=== PATIENT | female | born 1980 | race Caucasian/White ===

== ENCOUNTER 2023-07-03 14:20 | Emergency (ER) | payer MEDICAID, SELFPAY ==
[2023-07-03 15:06] VITALS: BMI 39.4
--- NOTE | 2023-07-03 15:06 | XR_ITS ---
FINAL REPORT CLINICAL HISTORY: fall COMPARISON: None FINDINGS: LEFT FOOT: Three views of the left foot were obtained. There is no acute fracture or dislocation. Mild degenerative changes are present. Small calcaneal spurs are present as well. There is no soft tissue abnormality. IMPRESSION: No acute bony abnormality. Reviewed, Interpreted and Dictated by Donell Ornelas III, MD Transcribed by Kimberly Carbajal Authenticated and . [facility]
--- NOTE | 2023-07-03 15:06 | XR_ITS ---
FINAL REPORT CLINICAL HISTORY: fall COMPARISON: None FINDINGS: AP and lateral views of the left tibia and fibula were obtained. There is no prior exam for comparison. There is no acute fracture of the left tibia or fibula. The knee and ankle appear intact. The soft tissues are normal. IMPRESSION: No acute osseous abnormality of the left tibia or fibula. Reviewed, Interpreted and Dictated by Donell Ornelas III, MD Transcribed by Kimberly Carbajal Authenticated and [facility]
--- NOTE | 2023-07-03 15:06 | XR_ITS ---
FINAL REPORT CLINICAL HISTORY: fall COMPARISON: None FINDINGS: LEFT ANKLE: Three views of the left ankle were obtained. There is no acute fracture or dislocation. The joint spaces and mortise are intact. There is no soft tissue abnormality. Small calcaneal spurs are present. IMPRESSION: No acute bony abnormality. Reviewed, Interpreted and Dictated by Doenll Ornelas III, MD Transcribed by Kimberly Carbajal Authenticated and [facility]
--- NOTE | 2023-07-03 15:21 | EXP.UTC ---
Discharge Plan Disposition Patient Disposition: Home, Self-Care Condition: Good Prescriptions Prescriptions: New ibuprofen [ibuprofen] 600 mg tablet 600 mg PO Q6HP PRN (Reason: Mild Pain) Qty: 30 0RF Referrals Follow up/Referrals: Nell Montez APRN [Primary Care Provider] - See instructions Mell Enamorado DPM [Staff Physician] - See instructions Activity Restrictions/Add. Instructions Additional Instructions/Restrictions: Rest the extremity, apply ice for 15 minutes as tolerated three or four times per day, Elevate the extremity as tolerated while you are resting. Take ibuprofen for pain. I sent in a prescription to your pharmacy. Follow up with Dr. Enamorado (podiatry). I put in a referral but you need to call her office and schedule an appointment. Follow up with your regular doctor. GO TO THE ER FOR ANY WORSENING SYMPTOMS Clinical Impressions Clinical Impression: Sprain of left foot, Sprain of left ankle Instructions Patient Instructions: How to Use Crutches, DI for Ankle Sprain, DI for Foot Sprain Discharge ED Provider: Ronny Casiano [facility] General Stated complaint: ao 07/03/23 fell left foot pain Time Seen by Provider: 07/03/23 15:21 History of Present Illness Provider Complaint: She states that she twisted her left foot and ankle today. This caused her to fall. Since then she has had left foot and ankle pain and swelling. She denies any other injury. Related Data Previous Rx's Medication Instructions Recorded ibuprofen 600 mg tablet 600 mg PO Q6HP PRN Mild Pain #30 07/03/23 tabs Allergies Allergy/AdvReac Type Severity Reaction Status Date / Time No Known Allergies Allergy Unverified 05/16/17 14:19 [facility] Disclaimer: The information contained in this section may have been updated after the patient was seen, as this information can be updated by other users. Social History Smoking Status: Never smoker alcohol intake: never current occupational status: employed Travel in the last 8 weeks: None ROS Obtained: Yes All systems reviewed & no additional complaints except as documented Constitutional Constitutional: Denies chills and Denies fever(s) Eyes Eyes: Denies eye discharge ENT Ears, Nose, Mouth, and Throat: Denies dizziness, Denies otalgia and Denies sore throat Cardiovascular Cardiovascular: Denies chest pain Respiratory Respiratory: Denies shortness of breath, Denies chest congestion, Denies cough, Denies stridor and Denies wheezing Gastrointestinal Gastrointestingal: Denies nausea or vomiting Musculoskeletal Musculoskeletal: Reports as per HPI Integumentary/Breasts Skin/Breast: Denies rash Neurologic Neurologic: Denies dizziness and Denies paresthesias Allergic/Immunologic Allergic/Immunologic: Denies wheezing Physical Exam General General appearance: alert and in no apparent distress Head Head exam: atraumatic, normocephalic and normal inspection Eye Eye exam: Present normal appearance, PERRL and EOMI ENT ENT exam: Present normal exam, normal oropharynx, mucous membranes moist, TM's normal bilaterally and normal external ear exam Neck Neck exam: Present normal inspection, full ROM and trachea midline; Absent meningismus or lymphadenopathy Chest Chest inspection: Present normal inspection and symmetric chest wall rise; Absent tenderness Respiratory Respiratory exam: Present normal lung sounds bilaterally; Absent respiratory distress Cardiovascular Cardiovascular exam: Present regular rate and normal rhythm; Absent JVD Abdominal Exam Abdominal exam: Present soft and normal bowel sounds; Absent distention, tenderness or guarding Extremities Exam Extremities exam: Present normal capillary refill; Absent calf tenderness Expanded Lower Extremity Exam Left: Knee exam: Present normal inspection, full ROM and knee extension intact; Absent tenderness Lower leg exam: Present normal inspection, full ROM and Achilles tendon intact; Absent tenderness or Homans' sign Ankle exam: Present full ROM, tenderness and swelling; Absent abrasion, laceration, ecchymosis, deformity, crepitus, dislocation, erythema, tenderness over talofibular lig or anterior draw sign Foot/toe exam: Present full ROM, tenderness and swelling; Absent abrasion, laceration, ecchymosis, deformity, crepitus, dislocation, erythema, amputation, puncture wound, foreign body, calcaneal tenderness, tenderness at base of 5th metatarsal, nail avulsion or subungual hematoma Neurovascular/Tendon exam: Present normal capillary refill; Absent pulse deficit, motor deficit, sensory deficit, tendon deficit or extremity cold to touch Gait: observed and limited by pain Back Exam Back exam: Present normal inspection; Absent tenderness Neurological Exam Neurological exam: Present alert and oriented X3 Psychiatric Psychiatric exam: Present normal affect and normal mood Skin Skin exam: Present warm, dry, intact and normal color Lymphatic Lymphatic Findings: no adenopathy Medical Decision Making Medical Records Medical records reviewed: No I reviewed the patient's medical records. Harish Inquiry Pt receiving controlled substance: No Orders (Tests/Meds): ORDERS Category Date Time Status Foot XR left minimum 3 views [XR foot LT min 3V] Stat Exams 07/03/23 15:06 Ordered XR ankle LT min 3V Stat Exams 07/03/23 15:06 Ordered XR tibia fibula LT 2V Stat Exams 07/03/23 15:06 Ordered Radiology Data #1: Image(s): Ankle Image Reviewed: Yes I reviewed the patient's radiology image and Yes I have reviewed radiologist's interpretation Preliminary Findings: No Fracture Seen FINAL REPORT CLINICAL HISTORY: fall COMPARISON: None FINDINGS: LEFT ANKLE: Three views of the left ankle were obtained. There is no acute fracture or dislocation. The joint spaces and mortise are intact. There is no soft tissue abnormality. Small calcaneal spurs are present. IMPRESSION: No acute bony abnormality. Reviewed, Interpreted and Dictated by Donell Ornelas III, MD Transcribed by Kimberly Carbajal Authenticated and [facility]: Image(s): Foot/Toes Image Reviewed: Yes I reviewed the patient's radiology image and Yes I have reviewed radiologist's interpretation Preliminary Findings: No Fracture Seen FINAL REPORT CLINICAL HISTORY: fall COMPARISON: None FINDINGS: AP and lateral views of the left tibia and fibula were obtained. There is no prior exam for comparison. There is no acute fracture of the left tibia or fibula. The knee and ankle appear intact. The soft tissues are normal. IMPRESSION: No acute osseous abnormality of the left tibia or fibula. Reviewed, Interpreted and Dictated by Donell Ornelas III, MD Transcribed by Kimberly Carbajal Authenticated and [facility] Procedures Risk/Benefits of Procedure(s) Were Explained: Yes Orthopedic Splinting/Casting Injury #1: Side: left Lower Extremity Injury Location: ankle and foot Lower Extremity Immobilizer: AirCast Other Orthopedic Equipment: crutches Post Cast/Splinting Neuro Status: intact and no change Post Cast/Splinting Vasc Status: intact and no change
[2023-07-03 15:36] VITALS: BP 127/84; PULSE 85; RESP 20; TEMP 37.2; O2SAT 96; BMI 35.4
[2023-07-03] MEDS: IBUPROFEN 800 MG TABLET PO (17:24)
[2023-07-03 17:29] VITALS: BP 127/84; PULSE 85; RESP 20; TEMP 37.2; O2SAT 96
== END 2023-07-03 17:29 | disposition home or self-care (01) ==
PROVIDERS: Emergency Provider Nurse Practitioner Family; PCP Nurse Practitioner Family
DX: S93.402A Sprain of unspecified ligament of left ankle, initial encounter (principal); S93.602A Unspecified sprain of left foot, initial encounter; W19.XXXA Unspecified fall, initial encounter
CPT/HCPCS: 73590; 73610; 73630; 99204; 99212; G0463

== ENCOUNTER 2024-08-27 15:37 | Outpatient (CLI) | payer MEDICAID, SELFPAY ==
[2024-08-27 16:49] LABS: Basophils % 0.3 % (0.1-2.0); Eosinophils % 0.5 % (0.1-12.0); Hemoglobin 12.6 g/dL (12.2-16.2); Lymphocytes % 27.1 % (10-50); Mean Corpuscular HGB Conc 32.3 g/dL (31.8-35.4); Mean Corpuscular Hemoglobin 27.3 pg (27.0-31.2); Mean Corpuscular Volume 84.4 fl (81-99); Mean Platelet Volume 9.8 fl (7.4-10.4); Monocytes # 0.3 K/mm3 (0.1-1.0); Monocytes % 4.5 % (1.7-9.3); Neutrophils # 4.9 K/mm3 (1.8-7.8); Neutrophils % 66.9 % (37.0-80.0); Platelet Count 197 K/mm3 (142-424); Red Blood Count 4.62 M/mm3 (4.20-5.40); Red Cell Distribution Width 15.2 % (11.5-17.5); White Blood Count 7.4 K/mm3 (4.8-10.8)
[2024-08-27 17:33] LABS: Erythrocyte Sedimentation Rate 21 mm/hr (0-20)
[2024-08-27 18:00] LABS: Free T4 (Free Thyroxine) 0.78 ng/dl (0.78-2.19)
[2024-08-27 18:11] LABS: Alanine Aminotransferase 26 U/L (12-78); Albumin Level 4.4 g/dl (3.5-5.0); Alkaline Phosphatase 124 U/L (38-126); Anion Gap 12.1 mEq/L (5-15); Aspartate Amino Transferase 55 U/L (14-36); Bilirubin,Direct 0.3 mg/dl (0.0-0.4); Bilirubin,Indirect 0.5 mg/dL (0.0-0.9); Bilirubin,Total 0.8 mg/dl (0.2-1.3); Bilirubin,Unconjugated 0.5 mg/dL (0.0-1.1); Blood Urea Nitrogen 8 mg/dl (7-17); Calcium 7.5 mg/dl (8.4-10.2); Carbon Dioxide 35 mmol/L (22.0-30.0); Chloride 96 mmol/L (98-107); Chol/HDL Ratio 4.2 (1-3.5); Cholesterol 202 mg/dl (140-200); Creatine Kinase 232 U/L (30-135); Estimated Glomerular Filt Rate 78 ml/min (>60); GFR (African American) 94 ML/MIN (>60); Glucose 142 mg/dl (74-100); HDL Cholesterol 48 mg/dl (40-60); Magnesium 1.7 mg/dl (1.6-2.3); Potassium 4.1 mmoL/L (3.5-5.1); Sodium 139 mmol/L (136-145); Total Protein,Serum 7.5 g/dl (6.3-8.2); Triglycerides 199 mg/dl (30-150); VLDL Cholesterol 40 mg/dL (0-40)
[2024-08-27 18:23] LABS: C-Reactive Protein 31.6 mg/L (0-4); Direct LDL Cholesterol 120.83 mg/dL (100-129)
[2024-08-27 18:24] LABS: NT Pro Brain Natriuretic Pep. 38.2 pg/mL (0-125)
[2024-08-27 19:56] LABS: Hemoglobin A1C 9.1 % (4.0-6.0)
== END 2024-08-27 23:59 | disposition home or self-care (01) ==
PROVIDERS: PCP Nurse Practitioner Family; Visit Provider Internal Medicine
DX: R94.31 Abnormal electrocardiogram [ECG] [EKG] (principal); R20.0 Anesthesia of skin; R20.2 Paresthesia of skin; R00.2 Palpitations; M79.605 Pain in left leg; M79.604 Pain in right leg; E11.9 Type 2 diabetes mellitus without complications; R60.9 Edema, unspecified
CPT/HCPCS: 36415; 80048; 80061; 80076; 82550; 83036; 83735; 83880; 84439; 84443; 85025; 85651; 86140; 93270

== ENCOUNTER 2024-09-13 10:51 | Outpatient (CLI) | payer MEDICAID, SELFPAY ==
--- NOTE | 2024-09-13 | CA_ITS ---
APPROVED REPORT EXAM: Comprehensive 2D, Doppler, and color-flow Echocardiogram Lean Manager: Savannah Huitron CRT Ht: 5 ft 3 in Wt: 213lbs BSA: 1.99 BP: 120/78 mmHg Indications: Abnormal ECG, Chest Pain, Diabetes, Fatigue, Peripheral Edema, Hyperlipidemia, Hypertension/HDD 2D Dimensions LA Volume 26.30 mL LA Volume Index 13.22 mL/m2 (M/F) 16-34 M-Mode Dimensions RVDd 2.84 cm (0.9-2.6) LA Diam 3.14 cm (1.9-4.0) LVDd 4.08 cm (3.5-5.7) LVDs 2.52 cm (3.5-5.7) IVSd 1.02 cm (0.6-1.1) PWd 0.70 cm (0.6-1.1) EF (Teich) 68.90% FS 38.20% EDV (Teich) 73.40 mL TAPSE 2.34 (<1.7) ESV (Teich) 22.80 mL LV Diastology E Decel Time 207 (160-240 msec) E/A Ratio 1.29 MED A' 5.00 cm/s LAT A' 7.80 cm/s Aortic Valve AO Peak GR. 7.10 mmHg Mitral Valve MV A Velocity 75.0 (40-130 cm/s) E/A Ratio 1.29 Pulmonary Valve PV Peak Velocity 91.0 (50-150 cm/s) Tricuspid Valve TR P. Velocity 174.00 cm/s RAP Estimate 10.00 mmHg RVSP 22.00 mmHg Left Ventricle The left ventricle is normal size. The left ventricular systolic function is normal. The left ventricular ejection fraction is within the normal range. There is normal left ventricular wall thickness. There is normal LV segmental wall motion. The left ventricular diastolic function is normal. LVEF is 55%. Right Ventricle The right ventricle is normal size. The right ventricular systolic function is normal. Atria The left atrium size is normal. The right atrium size is normal. There is no Doppler evidence of interatrial shunt. Aortic Valve Aortic valve opens well. There is no aortic valvular stenosis. Trace aortic regurgitation. Mitral Valve The mitral valve is normal in structure. No evidence of mitral valve stenosis. Trace mitral regurgitation. Tricuspid Valve Tricuspid valve is grossly normal in structure and function. Mild tricuspid regurgitation. RVSP is normal. Pulmonic Valve The pulmonary valve is normal in structure. Trace pulmonic regurgitation. Great Vessels The aortic root is normal in size. IVC is normal in size and collapses >50% with inspiration. Pericardium There is no pericardial effusion. Other Information Study Quality: Fair Conclusion Normal biventricular systolic function. Mild TR. Electronically signed by : Isabel Cuevas MD 09/15/2024 22:46:37
--- NOTE | 2024-09-13 | US_ITS ---
FINAL REPORT CLINICAL HISTORY: .Claudication, HTN, DM, HLD FINDINGS: BILATERAL ANKLE BRACHIAL INDICES Pressure indices are as follows are: RIGHT LOWER EXTREMITY Ankle brachial pressure index: 1.8 Toe brachial pressure index: 0.8 COMMENTS: Normal LEFT LOWER EXTREMITY Ankle brachial pressure index: 1.2 Toe brachial pressure index: 0.8 COMMENTS: Normal IMPRESSION: No evidence of significant obstructive peripheral vascular disease of the lower extremities. Reviewed, Interpreted and Dictated by Josiah Hartmann MD Transcribed by Luz López Authenticated and [facility]
[2024-09-13 11:59] VITALS: BMI 37.7
[2024-09-13] MEDS: METOPROLOL TARTRATE 50MG TABLET PO (12:00)
[2024-09-13] MEDS: METOPROLOL TARTRATE 25MG TABLET 25 MG (12:00)
[2024-09-13] MEDS: IVABRADINE HCL 7.5MG TABLET PO (12:00)
[2024-09-13 12:09] VITALS: BP 140/80; PULSE 72; RESP 16; O2SAT 98
[2024-09-13 12:56] VITALS: BP 120/54; PULSE 65; RESP 16; O2SAT 96
[2024-09-13] MEDS: NITROGLYCERIN 0.4MG SL TABLET SL (12:56)
[2024-09-13 12:59] VITALS: BP 126/76; PULSE 60; RESP 18; O2SAT 100
--- NOTE | 2024-09-13 13:00 | CT_ITS ---
APPROVED REPORT Composite Bond Worker: CLINICAL INDICATION Chest Pain TECHNIQUE Image Acquisition: A 128 slice MDCT scanner ([employer] View) was used for data acquisition. A noncontrast coronary calcium scan was performed. A CT attenuation threshold of 130 Hounsfield units (HU) was used for the detection of calcium in contiguous voxels of 1 sq mm in area to be counted as individual lesions. Bolus tracking in the ascending aorta with a threshold of 180 HU was performed. Immediately afterwards, ECG synchronized cardiac CT was then performed from the cardiac base to apex using retrospective gating with ECG tube current modulation. A total of 85 mL of Isovue 370 mg/mL contrast medium was administered at 5 mL/sec followed by a saline flush using a biphasic injection protocol. A tube voltage of 120 KVp was used. The patient received the following medications prior to the cardiac CT. 75 mg of oral metoprolol 15 mg of oral ivabradine 0.4 mg of sublingual nitroglycerin The average heart rate at the time of acquisition was 54 bpm and regular. Image Reconstruction Transaxial images were reconstructed at 0.67 mm slide thickness. Data was reviewed interactively on an advanced workstation capable of 2 and 3-dimensional displays in all conventional reconstruction formats, including multiplanar reformations, maximum intensity projections, curved multiplanar reformations, and volume rendered reconstructions. When applicable, selected routine images describing the relevant coronary anatomy and pathology were saved and sent to PACS. Complications None Technical Quality Overall image quality was good. Coronary artery opacification was adequate. Total DLP (Dose-Length Product) is 2019.5 mGy-cm. The reported value represents the total of one or more individual components during the CT acquisition of this date and at this time, and as such, the same value may appear in more than one CT report depending on the interpreting/reporting physicians. COMPARISON None FINDINGS CT Coronary Calcium Scoring LMA (Left Main Artery) = 0 LAD (Left Anterior Descending) = 0 LCX (Left Coronary Circumflex) = 0 RCA (Right Coronary Artery) = 0 Total Calcium Score = 0 using the AJ-130 method. The interpretation of the calcium heart score is based on the following continuum*: 0 = no calcified plaque detected (risk of coronary artery disease is very low ??? less than 5%) 1-10 = calcium detected in extremely minimal levels (risk of coronary diseases is still low ??? less than 10%) 11-100 = mild levels of plaque detected with certainty (mild or minimal narrowing of heart arteries is likely) 101-400 = definite,at least moderate levels of plaque detected (relatively high risk of a heart attack within 3-5 years) >401-999 = extensive levels of plaque detected (high risk of heart attack, high levels of vascular disease are present, high likelihood of at least one significant coronary narrowing) *The calcium heart score quantifies the burden of coronary calcification/plaque in the coronary arteries. The calcium heart score is not able to evaluate the presence or burden of non-calcified (i.e. soft) plaque. There is no identifiable calcification in the aortic valve, mitral annulus or mitral valve, pericardium, or myocardium. Coronary CT Angiography The coronary arterial system is right dominant. Quantitative Stenosis Grading: Left Main (LM): The left main originates normally from the left sinus of Valsalva. The LM bifurcates into the left anterior descending artery and left circumflex artery. The LM is patent with no evidence of atherosclerosis. Left Anterior Descending (LAD) and Diagonal Branches: The LAD gives off 2 diagonal branch(es). The LAD and its branches are patent with no evidence of atherosclerosis. There is no evidence of LAD-myocardial bridge. Left Circumflex (LCX) and Obtuse Marginals (OM): The LCX gives off 1 Obtuse Marginal (OM) branch(es). The LCX and its branches are patent with no evidence of atherosclerosis. Right Coronary Artery (RCA): The RCA originates normally from the right sinus of Valsalva. The RCA gives off a posterior descending artery (PDA) and posterolateral (PL) branches. The RCA and its branches are patent with no evidence of atherosclerosis. Non-Coronary Cardiac Findings: Analysis of the left ventricular (LV) structure and function was performed after 3-D reconstruction of the LV from axial images, with user-corrected automatic contouring for assessment of LV volumes and user-defined reconstruction from oblique planes for measurement of 3-D cardiac structure and function. -The left ventricle systolic function is normal. -There is no left atrial appendage filling defect. Two right pulmonary veins and two left pulmonary veins drain normally into the left atrium. -No pericardial thickening or calcification. -Central and branch pulmonary arteries in the [id number] are unremarkable. -Thoracic aorta within the visualized thoracic aortic-branches in the [id number] is unremarkable. Extracardiac Structures No significant extra-cardiac findings. Note, however, that this study is focused on the cardiac findings. IMPRESSION -Absence of coronary calcification with an Agatston score = 0 using the AJ-130 method. -No evidence of significant flow-limiting atherosclerosis of the coronary arteries. -No evidence of coronary anomalies or myocardial bridges. -CAD-RADS 0. Management recommendations per ACC/AHA guidelines*, as clinically appropriate. *Recommendations: CAD RADS 0: Reassurance. Consider non-atherosclerotic causes of chest pain. CAD RADS 1: Consider non-atherosclerotic causes of chest pain. Consider preventive therapy and risk factor modification. CAD RADS 2: Consider non-atherosclerotic causes of chest pain. Consider preventive therapy and risk factor modification, particularly for patients with nonobstructive plaque in multiple segments. CAD RADS 3: Consider further functional testing. Consider symptom-guided anti-ischemic and preventive pharmacotherapy as well as risk factor modification per published guideline statements. CAD RADS 4A: Consider further functional testing or invasive coronary angiography with revascularization per published guideline statements. Consider symptom-guided anti-ischemic and preventive pharmacotherapy as well as risk factor modification per published guideline statements. CAD RADS 4B: Invasive coronary angiography recommended with revascularization per published guideline statements. Consider symptom-guided anti-ischemic and preventive pharmacotherapy as well as risk factor modification per published guideline statements. CAD RADS 5: Consider invasive angiography and/or viability assessment with revascularization per published guideline statements. Consider symptom-guided anti-ischemic and preventive pharmacotherapy as well as risk factor modification per published guideline statements. CRITICAL RESULT None COMMUNICATION Per this written report The coronary and cardiac findings of this CCTA were reviewed, reported, and signed by Dov Cuevas MD (Enrobing Machine Operator) Conclusion Electronically signed by : Isabel Cuevas MD 09/13/2024 21:13:32
[2024-09-13 13:02] VITALS: BP 115/63; PULSE 60; RESP 16; O2SAT 99
[2024-09-13 13:13] VITALS: BP 116/68; PULSE 67; RESP 16; O2SAT 99
[2024-09-13] MEDS: 0.9 % SODIUM CHLORIDE 50 ML VIAL IV (13:14)
[2024-09-13] MEDS: SODIUM CHLORIDE 0.9% 10ML SYR (RAD ONLY) 10 ML IV (13:14)
[2024-09-13] MEDS: IOPAMIDOL-370 (76%);100ML BOTTLE 85 ML IV (13:14)
== END 2024-09-13 13:16 | disposition home or self-care (01) ==
LOC: RT 10:52 → RAD 11:57
PROVIDERS: PCP Nurse Practitioner Family; Visit Provider Internal Medicine
DX: R07.89 Other chest pain (principal); R20.0 Anesthesia of skin; R20.2 Paresthesia of skin; R00.2 Palpitations; E11.9 Type 2 diabetes mellitus without complications
CPT/HCPCS: 75574; 93306; 93923; Q9967

== ENCOUNTER 2025-03-18 23:55 | Observation (INO) | payer MEDICAID, SELFPAY ==
--- OUTSIDE RECORDS SUMMARY | 2024-02-28 13:00 | XMS_ITS ---
Author Organization Doc Larson [facility] Address [address] [facility] [address] [place] [address] Care Team Providers Care Arborist Representative Name Role Phone MENG BREWER Primary Care Provider [phone] ZACH MENDOZA [phone] Encounters Encounter Location Date Provider Diagnosis Doc L[facility] [address] [facility] [address] [place] [address] 02/28/2024 ZACH MENDOZA Plan Of Treatment No Information Progress Notes * Radha SALMERONDOB:[birth year] (44 yo F)Acc No.[id number]:02/28/2024 Patient: Radha HAMEED Appointment Provider: Du MENDOZA APRN :1980 A ge:43 Y S ex:Female Date:02/28/2024 Address:[address] [place] [address], [address] Pcp:MENG BREWER Check In:02:08 PM ESTCheck O ut:02:56 PM EST Subjective: * Chief Complaints: * * Medical History: Objective: * Vitals: Assessment: Plan: * Treatment: * Billing Information: * Visit Code: * Procedure Codes: * Electronic signature of DEJA MENDOZA APRN on 03/19/2025 at 12:02 AM EDT Sign off status: Pending * Appointment Provider: Du MENDOZA APRN Date: Generated for Printi ng/Faxing/eTransmitting on: 12:02 AM EDT
--- OUTSIDE RECORDS SUMMARY | 2024-06-17 09:45 | XMS_ITS ---
Author Organization Doc KNallely Larson [facility] Address [address] [facility] [address] [place] [address] Care Team Providers Care Lumber Sorter Name Role Phone MENG BREWER Primary Care Provider [phone] ZACH BELTRÁN [phone] REASON FOR VISIT 30 day f/u meds SEJAL fasting Encounters Encounter Location Date Provider Diagnosis Doc Laura Larson [facility] [address] [facility] [address] [place] [address] 06/17/2024 ZACH MENDOZA Plan Of Treatment No Information Progress Notes * Radha SALMERONDOB:[birth year] (44 yo F)Acc No.[id number]:06/17/2024 Progress Notes Patient: Radha HAMEED Appointment Provider: Du MENDOZA APRN :1980 A ge:43 Y S ex:Female Date:06/17/2024 Address:[address] [place] [address], [address] Pcp:MENG BREWER Subjective: * Chief Complaints: * 1 . 30 day f/u meds SEJAL fasting. * Medical History: Objective: * Vitals: Assessment: Plan: * Treatment: * Billing Information: * Visit Code: * Procedure Codes: * Electronic signature of DEJA MENDOZA APRN on 03/19/2025 at 12:02 AM EDT Sign off status: Pending * Appointment Provider: Du MENDOZA APRN Date: 0 06/17/2024 Generated for Printi ng/Faxing/eTransmitting on: 1 12:02 AM EDT
[2025-03-18 23:51] VITALS: BP 146/100; PULSE 91; RESP 14; TEMP 37.3; O2SAT 95; BMI 37.2
--- NOTE | 2025-03-18 23:53 | XR_ITS ---
PROCEDURE INFORMATION: Exam: XR Left Ankle Exam date and time: 03/19/2025 12:29 AM Age: 44 years old Clinical indication: Pain; Ankle; Left; Additional info: Fall, ankle pain TECHNIQUE: Imaging protocol: Radiologic exam of the left ankle. Views: 3 or more views. COMPARISON: CR XR ANKLE LT MIN 3V 07/03/2023 3:10 PM FINDINGS: Bones/joints: No acute osseous abnormality. No evidence of acute fracture or dislocation. Small plantar calcaneal spur. Soft tissues: No significant soft tissue abnormalities. IMPRESSION: No evidence of acute fracture or dislocation.
--- NOTE | 2025-03-18 23:53 | XR_ITS ---
PROCEDURE INFORMATION: Exam: XR Left Foot Exam date and time: 03/19/2025 12:29 AM Age: 44 years old Clinical indication: Pain; Foot; Left; Additional info: Fall, foot/ankle pain TECHNIQUE: Imaging protocol: Radiologic exam of the left foot. Views: 3 or more views. COMPARISON: CR XR FOOT LT MIN 3V 07/03/2023 3:09 PM FINDINGS: Bones/joints: No acute osseous abnormality. No evidence of acute fracture or dislocation. Small plantar calcaneal spur. Soft tissues: No significant soft tissue abnormalities. IMPRESSION: No evidence of acute fracture or dislocation.
--- NOTE | 2025-03-18 23:53 | XR_ITS ---
PROCEDURE INFORMATION: Exam: XR Left Shoulder Exam date and time: 03/19/2025 12:29 AM Age: 44 years old Clinical indication: Pain; Shoulder; Left; Additional info: Fall ankle pain TECHNIQUE: Imaging protocol: Radiologic exam of the left shoulder. Views: 2 or more views. COMPARISON: No relevant prior studies available. FINDINGS: Bones/joints: No acute osseous abnormality. No acute fracture. No dislocation. Soft tissues: No significant soft tissue abnormalities. IMPRESSION: No evidence of acute fracture or dislocation.
--- NOTE | 2025-03-18 23:54 | CT_ITS ---
PROCEDURE INFORMATION: Exam: CTA Chest With Contrast Exam date and time: 03/19/2025 1:03 AM Age: 44 years old Clinical indication: Injury or trauma; Injury details: Patient fell down stairs; Additional info: Trauma, critical injury suspected TECHNIQUE: Imaging protocol: Computed tomographic angiography of the chest with contrast. Exam focused on the arteries. 3D rendering (Not supervised by radiologist): MIP and/or 3D reconstructed images were created by the technologist. Radiation optimization: All CT scans at this facility use at least one of these dose optimization techniques: automated exposure control; mA and/or kV adjustment per patient size (includes targeted exams where dose is matched to clinical indication); or iterative reconstruction. Contrast material: ISOVUE; Contrast volume: 80 ml; Contrast route: INTRAVENOUS (IV); COMPARISON: CT ANGIO NECK 03/19/2025 1:00 AM FINDINGS: Pulmonary arteries: No vascular intraluminal filling defects to suggest pulmonary embolism. Aorta: No acute abnormality. No aortic aneurysm, pseudoaneurysm or dissection. Lungs: No acute abnormality. No consolidation. Anterior left upper lobe calcified granuloma and a few tiny bilateral noncalcified subpleural nodules or granulomas. Pleural spaces: No pleural effusion. No pneumothorax. Heart: Heart and mediastinal structures appear intact. Heart size is normal. Lymph nodes: No enlarged lymph nodes. Bones/joints: No acute osseous abnormality. No acute fracture. Soft tissues: No significant soft tissue abnormalities. Other findings: Abdomen and pelvis findings reported separately. IMPRESSION: No evidence of acute traumatic injury.
--- NOTE | 2025-03-18 23:54 | CT_ITS ---
PROCEDURE INFORMATION: Exam: CT Lumbar Spine Without Contrast Exam date and time: 03/19/2025 12:56 AM Age: 44 years old Clinical indication: Injury or trauma; Additional info: Trauma, critical injury suspected TECHNIQUE: Imaging protocol: Computed tomography of the lumbar spine without contrast. Radiation optimization: All CT scans at this facility use at least one of these dose optimization techniques: automated exposure control; mA and/or kV adjustment per patient size (includes targeted exams where dose is matched to clinical indication); or iterative reconstruction. COMPARISON: CT THORACIC SPINE WO CON 03/19/2025 12:53 AM FINDINGS: Bones/joints: No acute fracture or subluxation. Grossly normal alignment and vertebral body height. Multilevel findings: No acute findings. No significant spinal stenosis. Soft tissues: No significant soft tissue abnormalities. IMPRESSION: No evidence of acute fracture or subluxation.
--- NOTE | 2025-03-18 23:54 | CT_ITS ---
PROCEDURE INFORMATION: Exam: CTA Head With Contrast, Arteriography Exam date and time: 03/19/2025 1:00 AM Age: 44 years old Clinical indication: Injury or trauma; Additional info: Trauma, critical injury suspected TECHNIQUE: Imaging protocol: Computed tomographic angiography of the head with contrast. Exam focused on the arteries. Radiation optimization: All CT scans at this facility use at least one of these dose optimization techniques: automated exposure control; mA and/or kV adjustment per patient size (includes targeted exams where dose is matched to clinical indication); or iterative reconstruction. COMPARISON: CT HEAD/BRAIN WO CON 03/19/2025 12:48 AM FINDINGS: ANTERIOR CIRCULATION: INTRACRANIAL INTERNAL CAROTID ARTERIES: Intracranial internal carotid arteries are without acute flow limiting stenosis. MIDDLE CEREBRAL ARTERIES: M1 and visualized M2 segments of the MCA are without acute flow limiting stenosis. ANTERIOR CEREBRAL ARTERIES: A1 and visualized A2 segments of the BOB are without acute flow limiting stenosis. Anterior communicating artery is unremarkable. . POSTERIOR CIRCULATION: VERTEBRAL ARTERIES: Intracranial vertebral arteries and their visualized branches are without acute flow limiting stenosis. BASILAR ARTERY: Diffusely attenuated basilar artery with origin of the posterior cerebral arteries. POSTERIOR CEREBRAL ARTERIES: P1 and P2 segments of the [employer] are without acute flow limiting stenosis. IMPRESSION: NO acute flow-limiting stenosis or large vessel occlusion. COMMENTS: Recommend followup with MRI if persistent/new/worsening symptoms or symptoms unexplained by the current study. PROCEDURE INFORMATION: Exam: CTA Neck With Contrast Exam date and time: 03/19/2025 1:00 AM Age: 44 years old Clinical indication: Injury or trauma; Additional info: Trauma, critical injury suspected TECHNIQUE: Imaging protocol: Computed tomographic angiography of the neck with contrast. Exam focused on the cervical segments of the vasculature. 3D rendering (Not supervised by radiologist): MIP and/or 3D reconstructed images were created by the technologist. Radiation optimization: All CT scans at this facility use at least one of these dose optimization techniques: automated exposure control; mA and/or kV adjustment per patient size (includes targeted exams where dose is matched to clinical indication); or iterative reconstruction. Contrast material: ISOVUE; Contrast volume: 80 ml; Contrast route: INTRAVENOUS (IV); COMPARISON: No relevant prior studies available. FINDINGS: THORACIC VESSELS: Visualized aortic arch is unremarkable. No significant narrowing at the origin of the neck vessels. . COMMON CAROTID ARTERIES: Common carotid arteries are without acute flow limiting stenosis. . CERVICAL INTERNAL CAROTID ARTERIES: No acute flow-limiting stenosis of the cervical internal carotid arteries. No evidence of an aneurysm or a dissection. . VERTEBRAL ARTERIES: Cervical vertebral arteries are without acute flow limiting stenosis. . OTHER STRUCTURES: Chronic degenerative changes in the visualized spine. Extensive confluence ground-glass opacities with intervening air trapping in the visualized upper lung jameson. IMPRESSION: 1. NO acute flow-limiting stenosis, no occlusion, aneurysm or dissection of the carotid and vertebral arteries in the neck. 2. Extensive confluence ground-glass opacities with intervening air trapping in the visualized upper lung jameson. Differential diagnosis includes interstitial pneumonia, hypersensitivity pneumonitis, atypical pneumonia (PCP, CMV), pulmonary edema, pulmonary hemorrhage. REFERENCES: NASCET CRITERIA. The degree of stenosis in the cervical segment of the internal carotid artery is based on NASCET criteria. Normal is no stenosis. Mild is less than 50% stenosis. Moderate is 50-69% stenosis. Severe is 70% to 99% stenosis. Total occlusion is no detectable patent lumen.
--- NOTE | 2025-03-18 23:54 | CT_ITS ---
PROCEDURE INFORMATION: Exam: CT Cervical Spine Without Contrast Exam date and time: 03/19/2025 12:50 AM Age: 44 years old Clinical indication: Injury or trauma; Additional info: Fall down 10 steps, neck pain TECHNIQUE: Imaging protocol: Computed tomography of the cervical spine without contrast. Radiation optimization: All CT scans at this facility use at least one of these dose optimization techniques: automated exposure control; mA and/or kV adjustment per patient size (includes targeted exams where dose is matched to clinical indication); or iterative reconstruction. COMPARISON: No relevant prior studies available. FINDINGS: Bones: Loss of normal curvature of the spine, alignment of the vertebral bodies is grossly normal. No evidence of acute compression fracture or deformity in the cervical spine. No acute displaced fracture involving the vertebral bodies or their posterior elements. Discs/Spinal canal/Neural foramina: Mild chronic degenerative changes in the cervical spine. Lungs: NA Soft tissues: Pre-and paravertebral soft tissues are grossly normal. IMPRESSION: Mild chronic degenerative changes in the cervical spine without an acute bony cervical spine injury or abnormality. COMMENTS: Recommend followup with MRI if clinically suspicion for discoligamentous/soft tissue or cord abnormality. PROCEDURE INFORMATION: Exam: CT Head Without Contrast Exam date and time: 03/19/2025 12:48 AM Age: 44 years old Clinical indication: Injury or trauma; Additional info: Trauma, critical injury suspected TECHNIQUE: Imaging protocol: Computed tomography of the head without contrast. Radiation optimization: All CT scans at this facility use at least one of these dose optimization techniques: automated exposure control; mA and/or kV adjustment per patient size (includes targeted exams where dose is matched to clinical indication); or iterative reconstruction. COMPARISON: No relevant prior studies available. 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 Normal appearing brain parenchyma without intraparenchymal hemorrhage and normal sanchez-white matter differentiation/no obvious acute ischemic stroke. No intra-or extra-axial fluid collection, no supra-or infratentorial mass, no mass effect or midline shift. Cerebral ventricles: Ventricles, sulci and basal cisterns are normal in size without hydrocephalus. Paranasal sinuses: No significant mucoperiosteal thickening in the visualized paranasal sinuses. Mastoid air cells: No mastoid effusion. Bones: Visualized skull bones are grossly normal. Soft tissues: NA IMPRESSION: 1. 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 Recommend MRI for further evaluation. 2. No evidence of an acute intracranial hemorrhage, mass lesion or obvious acute ischemic infarction.
--- NOTE | 2025-03-18 23:54 | CT_ITS ---
PROCEDURE INFORMATION: Exam: CTA Abdomen and Pelvis With Contrast Exam date and time: 03/19/2025 1:03 AM Age: 44 years old Clinical indication: Injury or trauma; Additional info: Trauma, critical injury suspected TECHNIQUE: Imaging protocol: Computed tomographic angiography of the abdomen and pelvis with contrast. Exam focused on the arteries. 3D rendering (Not supervised by radiologist): MIP and/or 3D reconstructed images were created by the technologist. Radiation optimization: All CT scans at this facility use at least one of these dose optimization techniques: automated exposure control; mA and/or kV adjustment per patient size (includes targeted exams where dose is matched to clinical indication); or iterative reconstruction. Contrast material: ISOVUE; Contrast volume: 80 ml; Contrast route: INTRAVENOUS (IV); COMPARISON: CT LUMBAR SPINE WO CON 03/19/2025 12:56 AM FINDINGS: Lungs: Lung bases and chest findings reported separately. Aorta: No acute abnormality. No aortic aneurysm, pseudoaneurysm or dissection. Celiac and mesenteric arteries: No occlusion or significant stenosis. Renal arteries: No occlusion or significant stenosis. Right iliac arteries: No occlusion or significant stenosis. Left iliac arteries: No occlusion or significant stenosis. Liver: No acute abnormality. Liver appears intact. Diffuse fatty infiltration of the liver. Gallbladder and biliary ducts: Previous cholecystectomy. Pancreas: No acute abnormality. No mass. No ductal dilation. Spleen: No acute abnormality. Spleen appears intact. Adrenal glands: No significant or acute abnormality. Kidneys and ureters: Kidneys appear intact and enhance normally. No hydronephrosis or hydroureter. Stomach and bowel: Ingested contents within stomach. No significant or disproportionate large or small bowel distention. Moderate amount of stool within the colon. Colonic diverticulosis without CT evidence of diverticulitis. Appendix: No findings to suggest acute appendicitis. Intraperitoneal space: No significant fluid collection. No free air. Lymph nodes: No enlarged lymph nodes. Urinary bladder: Intact urinary bladder. Reproductive: Previous hysterectomy. Bones/joints: No acute fracture. Soft tissues: No significant soft tissue abnormalities. Large body habitus. IMPRESSION: 1. No evidence of traumatic visceral injury. 2. Diffuse fatty infiltration of the liver. 3. Colonic diverticulosis without CT evidence of diverticulitis. 4. Previous cholecystectomy and hysterectomy.
--- NOTE | 2025-03-18 23:54 | CT_ITS ---
PROCEDURE INFORMATION: Exam: CT Thoracic Spine Without Contrast Exam date and time: 03/19/2025 12:53 AM Age: 44 years old Clinical indication: Injury or trauma; Additional info: Fall down 10 steps, midline back pain TECHNIQUE: Imaging protocol: Computed tomography of the thoracic spine without contrast. Radiation optimization: All CT scans at this facility use at least one of these dose optimization techniques: automated exposure control; mA and/or kV adjustment per patient size (includes targeted exams where dose is matched to clinical indication); or iterative reconstruction. COMPARISON: CT CERVICAL SPINE WO CON 03/19/2025 12:50 AM FINDINGS: Bones/joints: No evidence of acute fracture or subluxation. Mild thoracic spondylosis and degenerative bony changes. Discs/Spinal canal/Neural foramina: No acute findings. No significant spinal stenosis. Soft tissues: No significant soft tissue abnormalities. IMPRESSION: No evidence of acute fracture or subluxation.
--- NOTE | 2025-03-18 23:55 | HMH.EDGENADL ---
Discharge Plan Disposition Patient Disposition: Admitted Prescriptions Prescriptions: No Action furosemide 40 mg tablet 40 mg PO DAILY Patient Comments: TAKE 1 TABLET BY MOUTH EVERY DAY levothyroxine 300 mcg tablet 300 mcg PO DAILY Patient Comments: TAKE 1 TABLET BY MOUTH DAILY IN THE MORNING ON AN EMPTY STOMACH glipizide 10 mg tablet extended release 24hr 10 mg PO DAILY Patient Comments: TAKE 1 TABLET BY MOUTH EVERY DAY aspirin 81 mg tablet,delayed release (DR/EC) 81 mg PO DAILY Patient Comments: TAKE 1 TABLET BY MOUTH EVERY DAY gabapentin 800 mg tablet 800 mg PO QID Patient Comments: TAKE 1 TABLET BY MOUTH FOUR TIMES DAILY lansoprazole 30 mg capsule,delayed release(DR/EC) 30 mg PO DAILY Patient Comments: TAKE 1 CAPSULE BY MOUTH EVERY DAY metoprolol tartrate 50 mg tablet 50 mg PO DAILY Patient Comments: TAKE 1 TABLET BY MOUTH TWICE DAILY potassium chloride 10 mEq tablet,ER particles/crystals 10 meq PO DAILY Patient Comments: TAKE 1 TABLET BY MOUTH TWICE DAILY WITH FOOD (DME) Dexcom G7 Sensor Device See Rx Instructions .ROUTE .MEDSUPPLY Qty: 1 Patient Comments: USE DIRECTED TO CHECK BLOOD SUGAR Rx Instructions: As directed Mounjaro 2.5 mg/0.5 mL pen injector 2.5 mg SQ WEEKLY Patient Comments: ADMINISTER 2.5 MG UNDER THE SKIN EVERY WEEK atorvastatin 20 mg tablet 10 mg PO DAILY Patient Comments: TAKE 1 TABLET BY MOUTH DAILY ibuprofen [ibuprofen] 600 mg tablet 600 mg PO Q6HP PRN (Reason: Mild Pain) Qty: 30 0RF Referrals Follow up/Referrals: Provider,Referral, MD [Primary Care Provider, Medical] - See instructions Clinical Impressions Clinical Impression: Fall, Neck pain, Acute pain of left shoulder Concussion Qualifiers: Encounter type: initial encounter Loss of consciousness presence/duration: with LOC of 30 min or less Qualified Code(s): S06.0X1A - Concussion with loss of consciousness of 30 minutes or less, initial encounter Print Language Print Language: Taiwanese Discharge ED Provider: Bart Yap General Adult HPI General Chief complaint: Fall Stated complaint: Fall Time Seen by Provider: 03/18/25 23:55 History of Present Illness HPI narrative: 39 female with history of heart failure, hypothyroidism, hypertension, diabetes presents for trauma. She reports that she missed stepped and fell down approximately 10 stairs. She hit her head at the bottom and is complaining of headache, neck pain, midline back pain, left shoulder and left foot/ankle pain. She is on low-dose aspirin but no other blood thinners. She was given 100 fentanyl by EMS prior to arrival. Related Data Home Medications ?Medication ?Instructions ?Recorded ?Confirmed aspirin 81 mg tablet,delayed 81 mg PO DAILY 08/27/24 09/13/24 release atorvastatin 20 mg tablet 10 mg PO DAILY 08/27/24 09/13/24 blood-glucose sensor (DexROVOP G7 #1 ea 08/27/24 09/13/24 Sensor device) furosemide 40 mg tablet 40 mg PO DAILY 08/27/24 09/13/24 gabapentin 800 mg tablet 800 mg PO QID 08/27/24 09/13/24 glipizide 10 mg tablet, extended 10 mg PO DAILY 08/27/24 09/13/24 release 24 hr lansoprazole 30 mg capsule,delayed 30 mg PO DAILY 08/27/24 09/13/24 release levothyroxine 300 mcg tablet 300 mcg PO DAILY 08/27/24 09/13/24 metoprolol tartrate 50 mg tablet 50 mg PO DAILY 08/27/24 09/13/24 potassium chloride 10 mEq 10 meq PO DAILY 08/27/24 09/13/24 tablet,extended release(part/cryst) tirzepatide 2.5 mg/0.5 mL 2.5 mg SQ WEEKLY 08/27/24 09/13/24 subcutaneous pen injector (Akilah) Previous Rx's ?Medication ?Instructions ?Recorded ibuprofen 600 mg tablet 600 mg PO Q6HP PRN Mild Pain #30 07/03/23 tabs Allergies Allergy/AdvReac Type Severity Reaction Status Date / Time No Known Allergies Allergy Verified 09/13/24 12:06 [facility] Disclaimer: The information contained in this section may have been updated after the patient was seen, as this information can be updated by other users. Medical History Numbness and tingling of both upper extremities Numbness and tingling of both legs Pain in both upper extremities Pain in both lower extremities Palpitations Edema Dizziness GERD (gastroesophageal reflux disease) Diverticulitis Diabetes Congestive heart failure Hyperthyroidism Surgical History History of thyroidectomy History of hysterectomy History of cholecystectomy Social History Smoking Status: Never smoker alcohol intake: never current occupational status: employed Travel in the last 8 weeks?: None Other Medical History Have you received the Flu Vaccine for this season: No Have you received the Pneumonia Vaccine: No ROS Obtained: Yes All systems reviewed & no additional complaints except as documented Physical Exam General General appearance: alert Head Head exam: normocephalic and other (Small forehead hematoma without laceration) Eye Eye exam: Present normal appearance, PERRL and EOMI ENT ENT exam: Present normal oropharynx and normal external ear exam Neck Neck exam: Present normal inspection and tenderness (Midline cervical tenderness) Chest Chest inspection: Present normal inspection and symmetric chest wall rise; Absent tenderness Respiratory Respiratory exam: Present normal lung sounds bilaterally; Absent respiratory distress Cardiovascular Cardiovascular exam: Present regular rate and normal rhythm Abdominal Exam Abdominal exam: Present soft; Absent distention, tenderness or guarding Extremities Exam Extremities exam: Present normal inspection and other (Tenderness to the left shoulder, left ankle. No laceration); Absent edema or joint swelling Back Exam Back exam: Present normal inspection and tenderness (Midline thoracic spinal tenderness) Neurological Exam Neurological exam: Present alert and oriented X3; Absent motor sensory deficit Psychiatric Psychiatric exam: Present normal affect and normal mood Skin Skin exam: Present warm, dry and normal color Lymphatic Lymphatic Findings: no adenopathy Medical Decision Making Medical Records Medical records reviewed: Yes I reviewed the patient's medical records. Screening: Per USPSTF and CDC recommendations, given the prevalence of disease in our region, it is our hospital?s policy to screen for HIV and viral Hepatitis for all patients aged 18 and over and those with ongoing risk factors. Harish Inquiry Pt receiving controlled substance: No Harish was queried for this patient: No Vital Signs: 03/18/25 23:51 03/18/25 23:57 03/19/25 00:00 Temperature 99.1 F Temperature Source Oral Pulse Rate 86 Pulse Rate [Left Radial] 91 H Respiratory Rate 14 13 Blood Pressure 154/87 H Blood Pressure [Left Brachial] 146/100 H Blood Pressure Mean 110 Blood Pressure Mean [Left Brachial] 115 Blood Pressure Source [Left Brachial] Automatic Cuff Blood Pressure Position [Left Brachial] Supine 02 Sat by Pulse Oximetry 95 96 Oxygen Delivery Method Room Air 03/19/25 00:00 03/19/25 00:15 03/19/25 00:21 Temperature Temperature Source Pulse Rate 90 82 Pulse Rate [Left Radial] Respiratory Rate 16 10 L Blood Pressure Blood Pressure [Left Brachial] Blood Pressure Mean Blood Pressure Mean [Left Brachial] Blood Pressure Source [Left Brachial] Blood Pressure Position [Left Brachial] 02 Sat by Pulse Oximetry 93 L 96 94 L Oxygen Delivery Method Room Air 03/19/25 01:10 03/19/25 01:15 03/19/25 01:30 Temperature Temperature Source Pulse Rate 82 86 87 Pulse Rate [Left Radial] Respiratory Rate 10 L 11 L 9 L Blood Pressure Blood Pressure [Left Brachial] Blood Pressure Mean Blood Pressure Mean [Left Brachial] Blood Pressure Source [Left Brachial] Blood Pressure Position [Left Brachial] 02 Sat by Pulse Oximetry 93 L 95 95 Oxygen Delivery Method 03/19/25 01:30 03/19/25 01:45 03/19/25 02:00 Temperature Temperature Source Pulse Rate 80 77 Pulse Rate [Left Radial] Respiratory Rate 9 L 10 L Blood Pressure 127/78 Blood Pressure [Left Brachial] Blood Pressure Mean 94 Blood Pressure Mean [Left Brachial] Blood Pressure Source [Left Brachial] Blood Pressure Position [Left Brachial] 02 Sat by Pulse Oximetry 95 95 Oxygen Delivery Method 03/19/25 02:01 03/19/25 02:01 03/19/25 02:15 Temperature Temperature Source Pulse Rate 78 77 Pulse Rate [Left Radial] Respiratory Rate 11 L 12 Blood Pressure 116/85 Blood Pressure [Left Brachial] Blood Pressure Mean 98 Blood Pressure Mean [Left Brachial] Blood Pressure Source [Left Brachial] Blood Pressure Position [Left Brachial] 02 Sat by Pulse Oximetry 95 96 Oxygen Delivery Method 03/19/25 02:30 03/19/25 02:30 Temperature Temperature Source Pulse Rate 75 Pulse Rate [Left Radial] Respiratory Rate 11 L Blood Pressure 117/86 Blood Pressure [Left Brachial] Blood Pressure Mean 93 Blood Pressure Mean [Left Brachial] Blood Pressure Source [Left Brachial] Blood Pressure Position [Left Brachial] 02 Sat by Pulse Oximetry 93 L Oxygen Delivery Method Lab Data Lab results reviewed: Yes I reviewed the patient's lab results. Lab Results 03/18/25 23:50: WBC 6.8, RBC 4.55, Hgb 12.8, Hct 38.1, MCV 83.7, MCH 28.1, MCHC 33.6, RDW 13.9, Plt Count 192, MPV 10.0, Neut % (Auto) 56.3, Lymph % (Auto) 35.8, Whitfield % (Auto) 5.9, Eos % (Auto) 1.3, Baso % (Auto) 0.4, Neut # (Auto) 3.8, Lymph # (Auto) 2.4, Whitfield # (Auto) 0.4, Eos # (Auto) 0.1, Baso # (Auto) 0.0, Sodium 137, Potassium 3.6, Chloride 97 L, Carbon Dioxide 31 H, Anion Gap 12.6, BUN 12, Creatinine 0.80, Estimated Creat Clear 134, Estimated GFR 78, Est GFR ( Amer) 94, Glucose 203 H, Calcium 8.5, Total Bilirubin 0.6, AST 42 H, ALT 24, Alkaline Phosphatase 173 H, Total Protein 7.4, Albumin 4.3, Globulin 3.1, Albumin/Globulin Ratio 1.4, HCV Ab JEN w/Rflx PCR Qn Reactive, HIV Ag/Ab Combo Qual Negative 03/18/25 23:50 03/18/25 23:50 Orders (Tests/Meds): ED MEDICATIONS Discontinued Medications Generic Name Dose Route Start Last Admin Trade Name Freq PRN Reason Stop Dose Admin Acetaminophen 1,000 mg 03/19/25 01:39 03/19/25 01:42 Acetaminophen 500mg Tab PO 03/19/25 01:40 1,000 mg ONCE ONE Administration Iopamidol 160 ml 03/19/25 01:04 03/19/25 01:12 Iopamidol-370 (76%);100ml Bottle IV 03/19/25 01:05 160 ml ONCE ONE Administration Ketorolac Tromethamine 30 mg 03/19/25 01:39 03/19/25 01:42 Ketorolac 30mg/Ml Vial IV 03/19/25 01:40 30 mg ONCE ONE Administration Sodium Chloride 100 ml 03/19/25 01:04 03/19/25 01:12 0.9 % Sodium Chloride 50 Ml Vial IV 03/19/25 01:05 100 ml ONCE ONE Administration Sodium Chloride 10 ml 03/19/25 01:04 03/19/25 01:12 Sodium Chloride 0.9% 10ml Syr (Rad Only) IV 03/19/25 01:05 10 ml ONCE ONE Administration ORDERS Category Date Time Status CT angio abd/pel - TRAUMA Stat Cat Scan 03/18/25 23:[address] angio chest - dissection Stat Cat Scan 03/18/25 23:[address] angio head Stat Cat Scan 03/18/25 23:[address] angio neck Stat Cat Scan 03/18/25 23:[address] cervical spine wo con Stat Cat Scan 03/18/25 23:[address] head/brain wo con Stat Cat Scan 03/18/25 23:[address] lumbar spine wo con Stat Cat Scan 03/18/25 23:[address] thoracic spine wo con Stat Cat Scan 03/18/25 23:54 Completed Ankle XR - Left minimum 3 Views [XR ankle LT min 3V] Exams 03/18/25 23:53 Completed Stat Foot XR left minimum 3 views [XR foot LT min 3V] Stat Exams 03/18/25 23:53 Completed Shoulder XR left minimum 2 views [XR shoulder LT min 2V Exams 03/18/25 23:53 Completed ] Stat CBC w/Auto Diff [Complete Blood Count Auto Diff] Stat Lab 03/18/25 23:50 Completed CMP [Comprehensive Metabolic Panel] Stat Lab 03/18/25 23:50 Completed HCV RNA PCR, Quant Stat Lab 03/18/25 23:50 Received HIV Combo Stat Lab 03/19/25 00:05 Completed Hepatitis C Ab Qual. W/ RFX Stat Lab 03/19/25 00:05 Completed Medical Decision Narrative: 44-year-old female with history of diabetes hypothyroidism hypertension and heart failure presents for fall down approximately 10 steps with headache neck pain back pain and extremity pain. Reports loss of consciousness. History was obtained via interactive discussion with patient, EMS, chart review. On arrival, patient is [afebrile, hemodynamically stable, satting appropriately, alert, oriented x4, GCS 15], moving all extremities spontaneously. Full physical exam performed and significant for small frontal hematoma on the forehead, midline cervical and thoracic back pain, tenderness to the left ankle and left shoulder. Normal strength and sensation in bilateral upper and lower extremities. Differential includes but is not limited to intracranial trauma and thoracic trauma intra-abdominal trauma spine trauma extremity trauma. Patient was given fentanyl by EMS for symptomatic management and correction of underlying abnormalities. Workup initiated including trauma scans, basic labs, radiographs of the affected extremities. On re-evaluation, patient reports continued headache, pain behind her eyes, neck pain and left shoulder pain. Family in the room reports that she is confused compared to baseline and not quite acting herself. Laboratory workup independently interpreted by me and significant for no significant leukocytosis, stable renal function, no significant electrolyte derangement. Imaging independently interpreted by me and significant for possible Chiari malformation in the brain, no obvious traumatic injury. CT C-spine shows no evidence of cervical injury. No rib fractures or intra-abdominal trauma. No evidence of fractures on radiographs.. See radiology read for full review of final results. On reassessment patient is continuing to have significant headache and neck pain and we were unable to clear her c-collar. Family reports that she is still not quite acting herself. Given this, I think patient would benefit from admission for observation for concussion as well as for Noncon MRI to assess for possible ligamentous/spinal cord injury not seen on CT scan. I discussed all the radiographic findings with the family including the possible Chiari malformation for which she will need a follow-up MRI at some point. I had a interactive discussion with the hospitalist on-call for admission. Procedures Risk/Benefits of Procedure(s) Were Explained: Yes Critical Care Critical Care Time Critical Care Time: No
[2025-03-18 23:57] VITALS: PULSE 86; RESP 13; O2SAT 96
[2025-03-18 23:59] LABS: Hematocrit 38.1 % (37.0-47.0); Hemoglobin 12.8 g/dL (12.2-16.2); Immature Granulocytes % 0.3 %; Mean Corpuscular HGB Conc 33.6 g/dL (31.8-35.4); Mean Corpuscular Hemoglobin 28.1 pg (27.0-31.2); Mean Corpuscular Volume 83.7 fl (81-99); Nucleated Red Blood Cells % 0 %; Platelet Count 192 K/mm3 (142-424); Red Blood Count 4.55 M/mm3 (4.20-5.40); Red Cell Distribution Width-SD 42.7 fL; White Blood Count 6.8 K/mm3 (4.8-10.8)
[2025-03-19] VITALS (18 sets, daily range): BP systolic 106–154; BP diastolic 76–87; PULSE 70–90; RESP 9–18; TEMP 36.6–37.3; O2SAT 92–97; BMI 37.4
--- OUTSIDE RECORDS SUMMARY | 2025-03-19 00:02 | XMS_ITS | Clinical Summary ---
Author Organization Healthcare Address [address] [place] [address] Care Team Providers Care Publications Distribution Clerk Name Role Phone Nell Paul APRN Primary Care Prov ider Allergies No known active allergies Medications Aspirin Low Dose 81 MG EC tablet Take 1 tablet (81 mg) by mouth 1 (one) time each day. 2 Active Bisacodyl EC 5 MG EC tablet TAKE 1 TABLET BY MOUTH DIRECTED FOR COLONOSCOPY PREP 3 Active cyanocobalamin (Vitamin B-12) 1000 MCG tablet DAILY 3 Active doxycycline (Vibramycin) 100 MG capsule Take 1 capsule (100 mg) by mouth. 3 Active DULoxetine (Cymbalta) [address] capsule Take 1 capsule (30 mg) by mouth every 12 (twelve) hours. 2 Active Jardiance 25 MG Take 1 tablet (25 mg) by mouth 1 (one) time each day. 3 Active ergocalciferol 1.25 MG (56228 UT) capsule TAKE 1 CAPSULE BY MOUTH WEEKLY 3 Active esomeprazole (NexIUM) [address] capsule TAKE 1 CAPSULE DAILY. 3 Active famotidine (Pepcid) 20 MG tablet 1 tablet (20 mg). 3 Active ferrous sulfate 325 (65 Fe) MG tablet 1 tablet (325 mg). 3 Active furosemide (Lasix) 20 MG tablet 3 Active gabapentin (Neurontin) 300 MG capsule Take 800 mg by mouth. 3 Active Emgality 120 MG/ML injection 10/18/202 2 Active glipiZIDE (Glucotrol) 5 MG tablet Take 1 tablet (5 mg) by mouth 2 (two) times a day before meals. 2 Active OneTouch Ultra test strip USE TO CHECK BLOOD GLUCOSE LEVELS TWICE DAILY AND NEEDED 3 Active ibuprofen 200 MG tablet 4 tablets (800 mg). 4 Active insulin aspart protamine-insuli n aspart (NovoLOG Mix 70-30) (70-30) 100 UNIT/ML injection pen 30 Units. 3 Active Toujeo Max SoloStar 300 UNIT/ML injection pen ADMINISTER 50 UNITS UNDER THE SKIN EVERY DAY IN THE EVENING 3 Active BD Pen Needle Kerrie 2nd Gen 32G X 4 MM misc USE DIRECTED PER PRESCRIBER DIRECTIONS 3 Active lactulose (Chronulac) 10 GM/15ML oral solution Take 30 mL (20 g) by mouth every 8 (eight) hours. 4 Active Accu-Chek Softclix Lancets lancets 3 Active levothyroxine (Synthroid, Levoxyl) 200 MCG tablet Take 1.5 tablets (300 mcg) by mouth 1 (one) time each day. 2 Active loratadine (Claritin) 10 MG tablet 1 tablet (10 mg). 2 Active methadone (Methadose) 40 MG dispersible tablet 2 tablets (80 mg). 2 Active methylPREDNISolo ne (Medrol Dospak) 4 MG tablets follow package directions 3 Active metoclopramide (Reglan) 10 MG tablet Take 1 tablet (10 mg) by mouth. 3 Active metoprolol tartrate (Lopressor) 50 MG tablet Take by mouth every 12 (twelve) hours. 2 Active mirtazapine (Remeron) 15 MG tablet Take 1 tablet (15 mg) by mouth every night. 2 Active ondansetron (Zofran) 4 MG tablet Take 1 tablet (4 mg) by mouth. 2 Active oxyCODONE-acetam inophen (Percocet) 5-325 MG tablet Take 1 tablet by mouth every 4 (four) hours if needed. 2 Active pantoprazole (Protonix) 40 MG EC tablet Take 1 tablet (40 mg) by mouth 1 (one) time each day. 3 Active polyethylene glycol (GoLYTELY) 236 g solution 240 mL. 3 Active polyethylene glycol (Miralax) 17 GM/SCOOP powder MIX 1 CAPFUL WIHT 8 OUNCES OF LIQUID AND DRINK BY MOUTH TWICE DAILY NEEDED 2 Active potassium chloride CR (Klor-Con M10) 10 MEQ ER tablet Take 1 tablet (10 mEq) by mouth 1 (one) time each day if needed. 3 Active Ozempic, 0.25 or 0.5 MG/DOSE, 2 MG/3ML solution pen-injector INJECT 0.25 MILLIGRAM DIRECTED EVERY WEEK 3 Active sucralfate (Carafate) 1 g tablet BEFORE MEALS AND AT BEDTIME 3 Active traMADol (Ultram) 50 MG tablet Take 1 tablet (50 mg) by mouth every 6 (six) hours if needed. 3 Active levothyroxine (Synthroid, Unithroid) 300 MCG tablet Take 1 tablet (300 mcg) by mouth 1 (one) time each day. Active Active Problems Problem Noted Date Diagnosed Date Postoperative hypothyroidism 02/02/2023 HTN (hypertension) 02/02/2023 Type 2 diabetes mellitus, wi th long-term current use of insulin 02/02/2023 Cirrhosis 02/02/2023 GERD (gastroesophageal reflux disease) 3 Hx of peptic ulcer 02/02/2023 Chronic fatigue 02/02/2023 Other constipation 02/02/2023 Hair loss 02/02/2023 Weight gain 02/02/2023 Sleep disturbance 02/02/2023 Family History Medical History Relation Name Comments Alcohol abuse Brother 1 Diabetes Brother 2 Heart disease Brother 3 Hypertension Brother 4 Alcohol abuse Father Heart disease Father Hypertension Father Stroke Father Colon cancer Mother Depression Mother Diabetes Mother Hepatitis Mother Liver disease Mother Lung disease Mother Colon cancer Mother's Brother Alcohol abuse Sister 1 Liver disease Sister 2 Depression Sister 3 Hepatitis Sister 4 Hypertension Sister 5 Lung disease Sister 6 Relation Name Status Comments Brother 1 Brother 2 Brother 3 Brother 4 Father Mother Mother's Brother Sister 1 Sister 2 Sister 3 Sister 4 Sister 5 Sister 6 Social History Tobacco Use Types Packs/Day Years Used Date Smoking Tobacco: Never Smokeless Tobacco: Never Alcohol Use Standard Drinks/Week Comments No 0 (1 standard drink = 0.6 oz pure alcohol) Alcoholic Drinks/day: Never Drank Alcohol Comments Unknown Sex and Gender Information Value Date Recorded Sex Assigned at Not on file Legal Sex Female 8:11 PM EDT Gender Identity Not on file Sexual Orientation Not on file Last Filed Vital Signs Vital Sign Reading Time Taken Comments Blood Pressure 122/81 02/02/2023 3:57 PM EDT Pulse 92 02/02/2023 3:57 PM EDT Temperature - - Respiratory Rate - - Oxygen Saturation - - Inhaled Oxygen Concentration - - Weight 96.4 kg (212 lb 8.4 oz) 02/02/2023 3:57 P M EDT Height 162.6 cm (5' 4 ) 02/02/2023 3:57 PM EDT Body Mass Index 36.48 02/02/2023 3:57 PM EDT Plan of Treatment Health Maintenance Due Date Last Done Comments [facility]-Depression Screening 1979 [facility]-Infant/Child/Adol SDOH Screenings 1979 [facility]-Varicella Vaccines (1 of 2 - 13+ 2-dose series) 11/14/1992 [facility]- SDOH Screenings 11/14/1997 [facility]-Adult SDOH Screenings 11/14/1997 [facility]-DTaP,Tdap,and Td Vaccine s (1 - Tdap) 11/14/1998 [facility]-Pap Smear 11/14/2000 HPV Vaccines (1 - 3-dose SCD M series) 11/14/2006 [facility]-Hepatitis B Vaccines (2 of 3 - 19+ 3-dose series) 09/30/2008 09/02/2008 [facility]-Cervical Cancer Screening 11/14/2009 [facility]-HPV/Cotest 11/14/2009 CT Colonography 11/14/2024 Colonoscopy 11/14/2024 FIT-DNA 11/14/2024 FIT 11/14/2024 FOBT 11/14/2024 Sigmoidoscopy 11/14/2024 [facility]-Colorectal Cancer Screening 11/14/2024 [id number] Vaccine (1 - 20 24-25 season) 2025 [facility]-Influenza Vaccine (#1) 2025 [facility]-Zoster Vaccines (1 of 2) 11/14/2029 [facility]-Hepatitis A Vaccines Aged Out 09/02/2008 No longer eligible based on patient's age to complete this topic [facility]-HIB Vaccines Aged Out No longer e ligible based on patient's age to complete this topic [facility]-IPV Vaccines Aged Out No longer e ligible based on patient's age to complete this topic [facility]-Pneumococcal Vaccine: Pediatrics (0 to 5 Years) and At-Risk Patients (6 to 49 Years) Aged Out No long er eligible based on patient's age to complete this topic [facility]-Rotavirus Vaccines Aged Out No lo nger eligible based on patient's age to complete this topic Insurance MEDICAID [facility] MEDICAID Care Teams Publications Distribution Clerk Relationship Specialty Start Date End Date Nell Paul APRN [address] [place] [id number] PCP - General 02/02/23
--- OUTSIDE RECORDS SUMMARY | 2025-03-19 00:02 | XMS_ITS | Patient Health Record ---
Author Organization [facility] 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 Referring Provider First Name ZACH Referring Provider Last Name KELLY Referring Provider Speciality Family Pra ctice Referred Provider Specialty Orthopedic S urgery General Notes Rashawn Ernandez 03:10:22 PM >I attempted to contact the patient using the provided phone number, but the Automated Voice Response system indicates that the number is not available., Rashawn Ernandez 06/06/2024 03:47:00 PM >I spoke to [place]. She told me that the patient did not show up for the appointment, and they were trying to reach the patient, but no answer had been received. NO SHOW Referral Priority Routine Referral Appointment Date 06/06/2024 Medications Medication SIG (Take, Route, Frequency, Duration) Notes Start Date End Date Status Metoprolol Tartrate 50 MG 1 tablet with food Orally Twice a day; Duration: 30 days Active Cholecalciferol 1.25 MG (48727 UT) 1 tablet Orally once a week; Duration: 30 days Active Cyclobenzaprine HCl 10 MG 1 tablet at be dtime as needed Orally twice a day; Duration: 30 days Active Omeprazole 40 MG 1 capsule 30 minutes before morning meal Oral Once a day; Duration: 30 days Active Lansoprazole 30 MG 1 capsule before a meal Oral Once a day; Duration: 90 days Active Nitroglycerin 0.4 MG as directed Sublingual; Duration: 7 days Not-Taking Furosemide 20 MG 1 tablet Oral Once a day; Duration: 90 days Active Potassium Chloride Delisa ER 10 MEQ 1 tablet with food Oral Twice a day; Duration: 30 days Active Gabapentin 800 MG 1 tablet Oral every 6 hours; Duration: 30 days 05/17/2024 Active Insulin Asp Prot & Asp FlexPen (70-30) 100 UNIT/ML INJECT 10 TO 30 UNITS DIRECTED TWICE DAILY Subcutaneous; Duration: 20 Days Active Mounjaro 10 MG/0.5ML as directed Subcutaneous weekly; Duration: 30 days Active rOPINIRole HCl 5 MG 1 tablet Orally Thre e times a day; Duration: 30 day(s) 05/17/2024 Active BD Pen Needle Kerrie 2nd Gen 32G X 4 MM ; Duration: 30 Days Active Atorvastatin Calcium 20 MG 1 tablet Oral ly Once a day; Duration: 90 days 03/18/2024 Active OneTouch Delica Plus [id number] - USE TO CHECK BLOOD GLUCOSE LEVELS TWICE DAILY AND NEEDED; Duration: 30 Days Active Levothyroxine Sodium 300 MCG 1 tablet in the morning on an empty stomach Oral Once a day; Duration: 90 days Active OneTouch Ultra - USE TO CHECK BLOOD GLUCOSE LEVELS TWICE DAILY AND NEEDED In Vitro; Duration: 90 Days Active Levothyroxine Sodium 25 MCG 1 tablet in the morning on an empty stomach Orally Once a day; Duration: 90 days 03/20/2024 Active Social History Tobacco Use: Social History Observation Description Date Details (start date - stop date) Current Smoker NA - NA Household Question Answer Notes Marital status: Number of adults in household: 2 Number of children in household: 1 Tobacco Control (Standard) Question Answer Notes Tobacco use: Current smoker How often do you smoke cigarettes? Every day How many cigarettes a day do you smoke? 31 or mo re How soon after you wake up do you smoke your fir st cigarette? Within 5 minutes Are you interested in quitting? Not ready to katherine t Problems Problem Type SNOMED Code ICD Code Onset Dates Problem Status W/U Status Risk Notes Problem Polyneuropathy (84193115) Polyneuropathy, unspecified (G62.9) Active confirmed Problem Essential hypertension (00756980) Essential hypertension (I10) Active confirmed Problem Type II diabetes mellitus without complication (495708514) Type 2 diabetes mellitus without complication, without long-term current use of insulin (E11.9) Active confirmed Problem Vitamin D deficiency (78548281) Vitamin D deficiency (E55.9) Active confirmed Problem Acquired hypothyroidism (060965098) Acquired hypothyroidism (E03.9) Active confirmed Problem Gastroesophageal reflux disease without esophagitis (817828856) Gastroesophageal reflux disease without esophagitis (K21.9) Active confirmed Problem Hyperlipidaemia (49595977) Hyperlipidemia, unspecified hyperlipidemia type (E78.5) Active confirmed Problem Drug/chem diabet es w neuro comp w diabetic mononeuropathy (E09.41) Active confirmed Vital Signs Heart Rate 80 /min 05/17/2024 Temperature 98.5 degrees Fahrenheit 05/17/2024 Respiratory Rate 17 /min 05/17/2024 Oximetry 95 % 05/17/2024 Blood pressure diastolic 78 mm Hg 05/17/2024 Weight-kg 90.76 kg 05/17/2024 Height 63 in 05/17/2024 Blood pressure systolic 134 mm Hg 05/17/2024 Weight 200.1 lbs 05/17/2024 BMI 35.44 kg/m2 05/17/2024 Encounters Encounter Location Date Provider Diagnosis [facility] [address] [place] [id number] 03/20/2024 ZACH MENDOZA Acquired hypothyroid ism E03.9 [facility], [facility]. [address] [place] [address] 04/17/2024 ZACH MENDOZA Drug/chem diabetes w neuro comp w diabetic mononeuropathy E09.41 [facility], [facility]. [address] [place] [address] 05/17/2024 ZACH MENDOZA Drug/chem diabetes w neuro comp w diabetic mononeuropathy E09.41 Assessments Encounter Date Diagnosis (ICD Code) Assessment Notes Treatment Notes Treatment Clinical Notes Section Notes 03/20/2024 Acquired hypothyroidism (ICD-10 - E03.9) 04/17/2024 Drug/chem diabetes w neuro comp w diabetic mononeuropathy (ICD-10 - E09.41) Neuropathy: Goal is to decrease the amount of tingling and burning that patient has and educate patient on the need to do daily foot self-exam and yearly filament test, Pt educated on the risks for addiction, drowsiness, sleepiness, dependency, tolerance and overdose. Pt will have routine and randum drug screens to evaluate compliance. Pt advised against driving and operating heavy machinery if taking any medication that causes drowsiness. 05/17/2024 Drug/chem diabetes w neuro comp w diabetic mononeuropathy (ICD-10 - E09.41) Plan Of Treatment No Information Insurance Providers Payer Name Payer Address Payer Phone Subscriber Number Group Number Insured Name Patient Relationship to Insured Coverage Start Date Coverage End Date [facility] Medicaid [address] [address] [place], [place] [id number] Radha Ruvalcaba Self - patient is the insured 4 [employer] Medicaid [address] [address] [place] [phone] [id number] Rdaha Ruvalcaba Self - patient is the insured 4 4 Medications Administered Medication Instructions Date of Administration Dosage Notes Orphenadrine 01/22/2024 cefTRIAXone Sodium 08/22/2023 1000 mg cefTRIAXone Sodium 03/06/2024 1000 mg methylPREDNISolone Acetate 08/22/2023 125 mg methylPREDNISolone Acetate 03/06/2024 125 mg Cyanocobalamin 11/20/2023 1000 ug Cyanocobalamin 12/15/2023 1 ug Medical (General) History Medical History History ICD Code Type 2 diabetes mellitus wit hout complication, without long-term current use of insulin E11.9 Acquired hypothyroidism E03.9 Drug/chem diabetes w neuro comp w diabet ic mononeuropathy E09.41 Gastroesophageal reflux disease without esophagitis K21.9 Surgical History Surgery Date(Month/Year) cholecystectomy partial hysterectomy
--- OUTSIDE RECORDS SUMMARY | 2025-03-19 00:03 | XMS_ITS | Data Portability ---
Author Organization [employer] [facility] Address [address] [place] [address] Assessment Encounter Date Assessment Date Assessment LastModified by Organization Details LastModified Time 08/29/2024 08/29/2024 Advised to continue to monitor her blood sugar and adjust her diet accordingly. No other needs at this time. Advised to follow-up as scheduled or sooner if needed. [email or web address] Not available 08/29/2024 11:52:50 09/20/2024 09/20/2024 Increase of her mounjaro to 5 mg as noted. Area to face, hands consistent with likely eczema. Will treat with triamcinolone as noted. Advised to follow-up in 3 months or sooner if needed. [email or web address] Not available 09/20/2024 14:04:30 01/08/2025 01/08/2025 Reviewed med list with patient. She is not actually on medications as she thought. Will begin her back on buproprion which she said was helpful in the past. MHI packet provided. A1C reviewed with patient. She has improved significantly since her last reading. Advised to follow-up in 1 month and we will review the effectiveness of her meds at that time. [email or web address] Not available 01/08/2025 15:48:18 02/07/2025 02/07/2025 Will complete x-rays as noted to further evaluate. Tramadol provided for pain control. 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 Advised to follow-up in 3 months or sooner if needed. [email or web address] Not available 02/07/2025 13:56:35 Plan of Treatment Reminders Order Date Submit Date Provider Last Modified By Organization Details Last Modified Time Details Appointments None recorded. Lab HbA1c (hemoglobin A1c), blood [address], [address], 5 15:50:49 rapid flu (A+B) [address], [address], 5 15:32:58 rapid SARS CoV 2 Ag, QL, IA, upper respiratory specimen [address], [address], 5 15:32:53 rapid strep group A, throat [address], [address], 5 15:32:49 Referral beach lifeguard referral 2024 025 [email or web address] Radha Tirado [facility], [address] [place] [address] [address], [place], [address], 14:46:07 Procedures None recorded. Surgeries None recorded. Imaging XR, shoulder, 2 or more view [email or web address] [place] [address], [address], 5 11:34:22 XR, clavicle 2024 [email or web address], [address], 5 11:34:22 XR, clavicle 2024 [facility], [address] [place] [address], [phone], 16:54:07 Medication Orders tramadol 50 mg tablet 2024 025 [facility], [address] [place] [address], [address], 13:49:12 bupropion HCl XL 150 mg 24 hr tablet, extended release [address] [id number], [address], [place], [place], [id number], 15:48:49 Mounjaro 5 mg/0.5 mL subcutaneou s pen injector 2024 025 [email or web address] [address] [id number], [address], [place], [place], [id number], 14:55:17 triamcinolo ne acetonide 0.1 % topical cream 2024 [id number], [address], [place], [place], [id number], 13:52:38 Patient TargetsNo targets recorded. Patient Instructions Encounter Date Encounter Id Patient Instructions Last Modified By Organization Details Last Modified Time 10/08/2024 [id number] body mass index: care instructions Not available 10/08/2024 15:22:03 learning about healthy weight [email or web address] Not available 10/08/2024 15:22:03 01/08/2025 [id number] mental health assessment* [email or web address] Not available 01/08/2025 15:49:33 MHI Packet Adult Not available 01/08/2025 15:48:55 Reason for Referral Rn Transitional Care Referral for Numb ness and tingling sensation of skin Referring Physician: Reed Zamorano, Family Medicine, Encounter Date: 02/07/2025 Results Created Date Observation Date Name Description Value Unit Range Abnormal Flag Note LastModifiedBy Organization Detail LastModifiedTime 08/20/1908/20/2024 TSH+F REE T4 TSH 172.00 0 uIU/m L 0.450- 4.500 above high normal Resul ts confi rmed on dilut ion. Not Available [facility] ([facility]) [address] [place], [address], 08/20/2024 10:08:23 08/20/1908/20/2024 TSH+F REE T4 T4,free(dire ct) 0.21 NG/dL 0.82-1 .77 below low normal Not Available [facility] ([facility]) [address] [place], [address], 08/20/2024 10:08:23 08/20/1908/20/2024 CBC WITH DIFFE RENTI AL/PL ATELE T WBC 6.9 x10e3 /uL 3.4-10 .8 normal Not Available [facility] ([facility]) [address] [place], [address], 08/20/2024 10:08:24 08/20/19 25 08/20/2024 CBC WITH DIFFE RENTI AL/PL ATELE T RBC 4.80 x10e6 /uL 3.77-5 .28 normal Not Available [facility] ([facility]) [address] [place], [address], 08/20/2024 10:08:24 08/20/19 25 08/20/2024 CBC WITH DIFFE RENTI AL/PL ATELE T hemoglobin 12.6 g/dL 11.1-1 5.9 normal Not Available [facility] ([facility]) [address] [place], [address], 08/20/2024 10:08:24 08/20/19 25 08/20/2024 CBC WITH DIFFE RENTI AL/PL ATELE T hematocrit 39.4 % 34.0-4 6.6 normal Not Available [facility] ([facility]) [address] [place], [address], 08/20/2024 10:08:24 08/20/19 25 08/20/2024 CBC WITH DIFFE RENTI AL/PL ATELE T MCV 82 fL 79-97 normal Not Available [facility] ([facility]) [address] [place], [address], 08/20/2024 10:08:24 08/20/19 25 08/20/2024 CBC WITH DIFFE RENTI AL/PL ATELE T MCH 26.3 pg 26.6-3 3.0 below low normal Not Available [facility] ([facility]) [address] [place], [address], 08/20/2024 10:08:24 08/20/19 25 08/20/2024 CBC WITH DIFFE RENTI AL/PL ATELE T MCHC 32.0 g/dL 31.5-3 5.7 normal Not Available [facility] ([facility]) [address] [place], [address], 08/20/2024 10:08:24 08/20/19 25 08/20/2024 CBC WITH DIFFE RENTI AL/PL ATELE T RDW 15.0 % 11.7-1 5.4 Not Available [facility] ([facility]) [address] [place], [address], 08/20/2024 10:08:24 08/20/19 25 08/20/2024 CBC WITH DIFFE RENTI AL/PL ATELE T platelets 195 x10e3 /uL 150-45 0 normal Not Available [facility] ([facility]) [address] [place], [address], 08/20/2024 10:08:24 08/20/19 25 08/20/2024 CBC WITH DIFFE RENTI AL/PL ATELE T neutrophils 56 % not estab. normal Not Available [facility] ([facility]) [address] [facility], [place], [address], 08/20/2024 10:08:24 08/20/1908/20/2024 CBC WITH DIFFE RENTI AL/PL ATELE T lymphs 36 % not estab. normal Not Available [facility] ([facility]) [address] [facility], [place], [address], 08/20/2024 10:08:24 08/20/1908/20/2024 CBC WITH DIFFE RENTI AL/PL ATELE T monocytes 5 % not estab. normal Not Available [facility] ([facility]) [address] [place], [address], 08/20/2024 10:08:24 08/20/1908/20/2024 CBC WITH DIFFE RENTI AL/PL ATELE T eos 2 % not estab. normal Not Available [facility] ([facility]) [address] [facility], [place], [address], 08/20/2024 10:08:24 08/20/1908/20/2024 CBC WITH DIFFE RENTI AL/PL ATELE T basos 1 % not estab. normal Not Available [facility] ([facility]) [address] [place], [address], 08/20/2024 10:08:24 08/20/1908/20/2024 CBC WITH DIFFE RENTI AL/PL ATELE T immature cells [employer] Not Available [facility] ([facility]) [address] [place], [address], 08/20/2024 10:08:24 08/20/19 25 08/20/2024 CBC WITH DIFFE RENTI AL/PL ATELE T neutrophils (absolute) 3.9 x10e3 /uL 1.4-7. 0 normal Not Available [facility] ([facility]) [address] [place], [address], 08/20/2024 10:08:24 08/20/19 25 08/20/2024 CBC WITH DIFFE RENTI AL/PL ATELE T lymphs (absolute) 2.5 x10e3 /uL 0.7-3. 1 normal Not Available [facility] ([facility]) [address] [facility], [place], [address], 08/20/2024 10:08:24 08/20/19 25 08/20/2024 CBC WITH DIFFE RENTI AL/PL ATELE T monocytes(ab solute) 0.4 x10e3 /uL 0.1-0. 9 normal Not Available [facility] ([facility]) [address] [facility], [place], [address], 08/20/2024 10:08:24 08/20/19 25 08/20/2024 CBC WITH DIFFE RENTI AL/PL ATELE T eos (absolute) 0.1 x10e3 /uL 0.0-0. 4 normal Not Available [facility] ([facility]) [address] [place], [address], 08/20/2024 10:08:24 08/20/19 25 08/20/2024 CBC WITH DIFFE RENTI AL/PL ATELE T baso (absolute) 0.0 x10e3 /uL 0.0-0. 2 normal Not Available [facility] ([facility]) [address] [facility], [place], [address], 08/20/2024 10:08:24 08/20/19 25 08/20/2024 CBC WITH DIFFE RENTI AL/PL ATELE T immature granulocytes 0 % not estab. Not Available [facility] ([facility]) [address] [place], [address], 08/20/2024 10:08:24 08/20/19 25 08/20/2024 CBC WITH DIFFE RENTI AL/PL ATELE T immature grans (abs) 0.0 x10e3 /uL 0.0-0. 1 Not Available [facility] ([facility]) [address] [place], [address], 08/20/2024 10:08:24 08/20/19 25 08/20/2024 CBC WITH DIFFE RENTI AL/PL ATELE T NRBC [employer] Not Available [facility] ([facility]) [address], [place], [address], 08/20/2024 10:08:24 08/20/19 25 08/20/2024 CBC WITH DIFFE RENTI AL/PL ATELE T hematology comments: [employer] Not Available [facility] ([facility]) [address] [facility], [place], [address], 08/20/2024 10:08:24 08/20/19 25 08/20/2024 COMP. METAB OLIC PANEL (14) glucose 184 mg/dL 70-99 above high normal Not Available [facility] ([facility]) [address] [place], [address], 08/20/2024 10:08:24 08/20/19 25 08/20/2024 COMP. METAB OLIC PANEL (14) BUN 7 mg/dL 6-24 normal Not Available [facility] ([facility]) [address] [place], [address], 08/20/2024 10:08:24 08/20/19 25 08/20/2024 COMP. METAB OLIC PANEL (14) creatinine 0.85 mg/dL 0.57-1 .00 normal Not Available [facility] ([facility]) [address] [place], [address], 08/20/2024 10:08:24 08/20/19 25 08/20/2024 COMP. METAB OLIC PANEL (14) eGFR 87 mL/mi n/1.7 3 >59 normal Not Available [facility] ([facility]) [address] [facility], [place], [address], 08/20/2024 10:08:24 08/20/19 25 08/20/2024 COMP. METAB OLIC PANEL (14) BUN/creatini ne ratio 8 9-23 below low normal Not Available [facility] ([facility]) [address] [place], [address], 08/20/2024 10:08:24 08/20/19 25 08/20/2024 COMP. METAB OLIC PANEL (14) sodium 140 mmol/ L 134-14 4 normal Not Available [facility] ([facility]) [address] [facility], [address], 08/20/2024 10:08:24 08/20/19 25 08/20/2024 COMP. METAB OLIC PANEL (14) potassium 4.7 mmol/ L 3.5-5. 2 normal Not Available [facility] ([facility]) [address] [facility], [address], 08/20/2024 10:08:24 08/20/19 25 08/20/2024 COMP. METAB OLIC PANEL (14) chloride 97 mmol/ L 96-106 normal Not Available [facility] ([facility]) [address] [facility], [address], 08/20/2024 10:08:24 08/20/19 25 08/20/2024 COMP. METAB OLIC PANEL (14) carbon dioxide, total 29 mmol/ L 20-29 normal Not Available [facility] ([facility]) [address] [facility], [address], 08/20/2024 10:08:24 08/20/19 25 08/20/2024 COMP. METAB OLIC PANEL (14) calcium 7.9 mg/dL 8.7-10 .2 below low normal Not Available [facility] ([facility]) [address] [place], [address], 08/20/2024 10:08:24 08/20/19 25 08/20/2024 COMP. METAB OLIC PANEL (14) protein, total 7.4 g/dL 6.0-8. 5 normal Not Available [facility] ([facility]) [address] [place], [address], 08/20/2024 10:08:24 08/20/19 25 08/20/2024 COMP. METAB OLIC PANEL (14) albumin 4.4 g/dL 3.9-4. 9 normal Not Available [facility] ([facility]) [address] [place], [address], 08/20/2024 10:08:24 08/20/19 25 08/20/2024 COMP. METAB OLIC PANEL (14) globulin, total 3.0 g/dL 1.5-4. 5 Not Available [facility] ([facility]) [address] [place], [address], 08/20/2024 10:08:24 08/20/19 25 08/20/2024 COMP. METAB OLIC PANEL (14) bilirubin, total 0.4 mg/dL 0.0-1. 2 normal Not Available [facility] ([facility]) [address] [place], [address], 08/20/2024 10:08:24 08/20/19 25 08/20/2024 COMP. METAB OLIC PANEL (14) alkaline phosphatase 168 IU/L 44-121 above high normal Not Available [facility] ([facility]) [address] [facility], [address], 08/20/2024 10:08:24 08/20/19 25 08/20/2024 COMP. METAB OLIC PANEL (14) AST (SGOT) 45 IU/L 0-40 above high normal Not Available [facility] ([facility]) [address] [facility], [address], 08/20/2024 10:08:24 08/20/19 25 08/20/2024 COMP. METAB OLIC PANEL (14) ALT (SGPT) 23 IU/L 0-32 normal Not Available [facility] ([facility]) [address] [place], [address], 08/20/2024 10:08:24 08/20/19 25 08/20/2024 LIPID PANEL cholesterol, total 224 mg/dL 100-19 9 above high normal Not Available [facility] ([facility]) [address] [place], [address], 08/20/2024 10:08:25 08/20/19 25 08/20/2024 LIPID PANEL triglyceride s 214 mg/dL 0-149 above high normal Not Available [facility] ([facility]) [address] [place], [address], 08/20/2024 10:08:25 08/20/19 25 08/20/2024 LIPID PANEL HDL cholesterol 54 mg/dL >39 normal Not Available [facility] ([facility]) [address] [place], [address], 08/20/2024 10:08:25 08/20/19 25 08/20/2024 LIPID PANEL VLDL cholesterol barbie 38 mg/dL 5-40 Not Available [facility] ([facility]) [address] [place], [address], 08/20/2024 10:08:25 08/20/19 25 08/20/2024 LIPID PANEL LDL chol calc ([facility]) 132 mg/dL 0-99 above high normal Not Available [facility] ([facility]) [address] [place], [address], 08/20/2024 10:08:25 08/20/19 25 08/20/2024 LIPID PANEL LDL calc comment: [employer] Not Available [facility] ([facility]) [address] [place], [address], 08/20/2024 10:08:25 08/20/1908/20/2024 ALBUM IN/CR EAT RATIO , RANDO M UR creatinine, urine 221.4 mg/dL not estab. normal Not Available [facility] ([facility]) [address] [facility], [place], [address], 08/20/2024 10:08:25 08/20/19 25 08/20/2024 ALBUM IN/CR EAT RATIO , RANDO M UR albumin, urine 25.4 ug/mL not estab. Not Available [facility] ([facility]) [address] [facility], [place], [address], 08/20/2024 10:08:25 08/20/1908/20/2024 ALBUM IN/CR EAT RATIO , RANDO M UR alb/creat ratio 11 mg/g_ creat 0-29 Dulce l: 0 - 29 Moder ately incre ased: 30 - 300 Sever misa incre ased: >300 Not Available [facility] ([facility]) [address] [facility], [place], [address], 08/20/2024 10:08:25 08/20/1908/20/2024 VITAM IN D, 25-HY DROXY vitamin D, 25-hydroxy 15.8 NG/mL 30.0-1 00.0 below low normal Vitam in D defic iency has been defin ed by the Insti tute of Medic ine and an Endoc rine Socie ty pract ice guide line as a level of serum 25-OH vitam in D less than 20 ng/mL (1,2) . The Endoc rine Socie ty went on to furth er defin e vitam in D insuf ficie ncy as a level betwe en 21 and 29 ng/mL (2). 1. IOM (Inst itute of Medic ine). 2010. Dieta ry refer ence intak es for calci um and D. Alan reddy [place]: [facility] Press . 2. Jennifer stanley [place], Felipa browning [place], Mehdi off-F errar i CHAHAL, et al. Evalu ation , treat ment, and preve ntion of vitam in D defic iency : an Endoc rine Socie ty clini barbie pract ice guide line. JCEM. 2010; 967) :1911 -30. Not Available [facility] ([facility]) [address] [facility], [place], [address], 08/20/2024 10:08:26 08/20/1908/22/2024 TOXAS SURE FLEX 20, UR summary report FINAL ===== ===== ===== ===== ===== ===== ===== ===== ===== ===== ===== ===== ===== === Metha done, MS, Ur RFX Gabap entin , MS, Ur RFX ToxAs sure Flex 20, Ur Krato m, MS, Ur RFX ===== ===== ===== ===== ===== ===== ===== ===== ===== ===== ===== ===== ===== === Test Resul t Flag Units Drug Prese nt Metha done >4926 ng/mg creat EDDP (Meth adone Mtb) >4926 ng/mg creat Sourc es of metha done inclu de sched uled presc ripti on medic ation s. EDDP is an expec velia metab olite of metha done. Gabap entin PRESE NT ===== ===== ===== ===== ===== ===== ===== ===== ===== ===== ===== ===== ===== === Test Resul t Flag Units Ref Range Creat inine 203 mg/dL >=20 ===== ===== ===== ===== ===== ===== ===== ===== ===== ===== ===== ===== ===== === Decla red Medic ation s: Medic ation list was not provi ded. ===== ===== ===== ===== ===== ===== ===== ===== ===== ===== ===== ===== ===== === For clini barbie consu ltati on, pleas e call [phone]. ===== ===== ===== ===== ===== ===== ===== ===== ===== ===== ===== ===== ===== === Not Available [facility] ([facility]) [address] [place], [address], 08/22/2024 12:08:10 08/20/1908/22/2024 TOXAS SURE FLEX 20, UR pdf . Not Available [facility] ([facility]) [address] [place], [address], 08/22/2024 12:08:10 08/20/19 25 08/22/2024 TOXAS SURE FLEX 20, UR creatinine 203 mg/dL REFER ENCE RANGE : Ref Range >=20 Not Available [facility] ([facility]) [address] [place], [address], 08/22/2024 12:08:10 08/20/1908/22/2024 TOXAS SURE FLEX 20, UR amphetamines ia Negati ve NG/mL cutoff :300 Not Available [facility] ([facility]) [address] [place], [address], 08/22/2024 12:08:10 08/20/19 25 08/22/2024 TOXAS SURE FLEX 20, UR benzodiazepi maxine Negati ve Not Available [facility] ([facility]) [address] [facility], [place], [address], 08/22/2024 12:08:10 08/20/19 25 08/22/2024 TOXAS SURE FLEX 20, UR diazepam Not Detect ed NG/mg _crea t Not Available [facility] ([facility]) [address] [facility], [place], [address], 08/22/2024 12:08:10 08/20/19 25 08/22/2024 TOXAS SURE FLEX 20, UR desmethyldia zepam Not Detect ed NG/mg _crea t Not Available [facility] ([facility]) [address] [facility], [place], [address], 08/22/2024 12:08:10 08/20/19 25 08/22/2024 TOXAS SURE FLEX 20, UR oxazepam Not Detect ed NG/mg _crea t Not Available [facility] ([facility]) [address] [facility], [place], [address], 08/22/2024 12:08:10 08/20/19 25 08/22/2024 TOXAS SURE FLEX 20, UR temazepam Not Detect ed NG/mg _crea t Expec velia metab olism of benzo diaze pine class drugs : Paren t Drug Detec velia Metab olite s ----- ----- - ----- ----- ----- ----- Diaze marlen: Desme thyld iazep am, Temaz epam, Oxaze marlen Chlor diaze poxid e: Desme thyld iazep am, Oxaze marlen Clora zepat e: Desme thyld iazep am, Oxaze marlen Halaz epam: Desme thyld iazep am, Oxaze marlen Temaz epam: Oxaze marlen Oxaze marlen: None Not Available [facility] ([facility]) [address] [facility], [place], [address], 08/22/2024 12:08:10 08/20/19 25 08/22/2024 TOXAS SURE FLEX 20, UR alprazolam Not Detect ed NG/mg _crea t Not Available [facility] ([facility]) [address] [place], [address], 08/22/2024 12:08:10 08/20/19 25 08/22/2024 TOXAS SURE FLEX 20, UR alpha-hydrox yalprazolam Not Detect ed NG/mg _crea t Not Available [facility] ([facility]) [address] [place], [address], 08/22/2024 12:08:10 08/20/19 25 08/22/2024 TOXAS SURE FLEX 20, UR desalkylflur azepam Not Detect ed NG/mg _crea t Not Available [facility] ([facility]) [address] [place], [address], 08/22/2024 12:08:10 08/20/19 25 08/22/2024 TOXAS SURE FLEX 20, UR lorazepam Not Detect ed NG/mg _crea t Not Available [facility] ([facility]) [address] [place], [address], 08/22/2024 12:08:10 08/20/19 25 08/22/2024 TOXAS SURE FLEX 20, UR alpha-hydrox ytriazolam Not Detect ed NG/mg _crea t Not Available [facility] ([facility]) [address] [place], [address], 08/22/2024 12:08:10 08/20/19 25 08/22/2024 TOXAS SURE FLEX 20, UR clonazepam Not Detect ed NG/mg _crea t Not Available [facility] ([facility]) [address] [place], [address], 08/22/2024 12:08:10 08/20/19 25 08/22/2024 TOXAS SURE FLEX 20, UR 7-aminoclona zepam Not Detect ed NG/mg _crea t Not Available [facility] ([facility]) [address] [place], [address], 08/22/2024 12:08:10 08/20/19 25 08/22/2024 TOXAS SURE FLEX 20, UR midazolam Not Detect ed NG/mg _crea t Not Available [facility] ([facility]) [address] [place], [address], 08/22/2024 12:08:10 08/20/19 25 08/22/2024 TOXAS SURE FLEX 20, UR alpha-hydrox ymidazolam Not Detect ed NG/mg _crea t Not Available [facility] ([facility]) [address] [place], [address], 08/22/2024 12:08:10 08/20/19 25 08/22/2024 TOXAS SURE FLEX 20, UR flunitrazepa m Not Detect ed NG/mg _crea t Not Available [facility] ([facility]) [address] [place], [address], 08/22/2024 12:08:10 08/20/19 25 08/22/2024 TOXAS SURE FLEX 20, UR desmethylflu nitrazepam Not Detect ed NG/mg _crea t Not Available [facility] ([facility]) [address] [place], [address], 08/22/2024 12:08:10 08/20/19 25 08/22/2024 TOXAS SURE FLEX 20, UR cocaine metabolite ia Negati ve NG/mL cutoff :150 Not Available [facility] ([facility]) [address] [place], [address], 08/22/2024 12:08:10 08/20/19 25 08/22/2024 TOXAS SURE FLEX 20, UR ethanol biomarkers ia Negati ve NG/mL cutoff :500 Not Available [facility] ([facility]) [address] [place], [address], 08/22/2024 12:08:10 08/20/19 25 08/22/2024 TOXAS SURE FLEX 20, UR cannabinoids ia Negati ve NG/mL cutoff :20 Not Available [facility] ([facility]) [address] [place], [address], 08/22/2024 12:08:10 08/20/19 25 08/22/2024 TOXAS SURE FLEX 20, UR 6-acetylmorp tita ia Negati ve NG/mL cutoff :10 Not Available [facility] ([facility]) [address] [place], [address], 08/22/2024 12:08:10 08/20/19 25 08/22/2024 TOXAS SURE FLEX 20, UR opiate class ia Negati ve NG/mL cutoff :100 Not Available [facility] ([facility]) [address] [place], [address], 08/22/2024 12:08:10 08/20/19 25 08/22/2024 TOXAS SURE FLEX 20, UR oxycodone class ia Negati ve NG/mL cutoff :100 Not Available [facility] ([facility]) [address] [place], [address], 08/22/2024 12:08:10 08/20/19 25 08/22/2024 TOXAS SURE FLEX 20, UR methadone ia COMMEN T NG/mL cutoff :100 Furth er testi ng indic ated Not Available [facility] ([facility]) [address] [place], [address], 08/22/2024 12:08:10 08/20/19 25 08/22/2024 TOXAS SURE FLEX 20, UR methadone mtb ia COMMEN T NG/mL cutoff :100 Furth er testi ng indic ated Not Available [facility] ([facility]) [address] [place], [address], 08/22/2024 12:08:10 08/20/19 25 08/22/2024 TOXAS SURE FLEX 20, UR buprenorphin e ia Negati ve NG/mL cutoff :5.0 Not Available [facility] ([facility]) [address] [place], [address], 08/22/2024 12:08:10 08/20/19 25 08/22/2024 TOXAS SURE FLEX 20, UR fentanyl ia Negati ve NG/mL cutoff :2.0 Not Available [facility] ([facility]) [address] [place], [address], 08/22/2024 12:08:10 08/20/19 25 08/22/2024 TOXAS SURE FLEX 20, UR tapentadol ia Negati ve NG/mL cutoff :200 Not Available [facility] ([facility]) [address] [place], [address], 08/22/2024 12:08:10 08/20/19 25 08/22/2024 TOXAS SURE FLEX 20, UR propoxyphene ia Negati ve NG/mL cutoff :300 Not Available [facility] ([facility]) [address] [place], [address], 08/22/2024 12:08:10 08/20/19 25 08/22/2024 TOXAS SURE FLEX 20, UR tramadol ia Negati ve NG/mL cutoff :200 Not Available [facility] ([facility]) [address] [place], [address], 08/22/2024 12:08:10 08/20/19 25 08/22/2024 TOXAS SURE FLEX 20, UR methylphenid ate ia Negati ve NG/mL cutoff :100 Not Available [facility] ([facility]) [address] [place], [address], 08/22/2024 12:08:10 08/20/19 25 08/22/2024 TOXAS SURE FLEX 20, UR barbiturates ia Negati ve NG/mL cutoff :200 Not Available [facility] ([facility]) [address] [place], [address], 08/22/2024 12:08:10 08/20/19 25 08/22/2024 TOXAS SURE FLEX 20, UR phencyclidin e ia Negati ve NG/mL cutoff :25 Not Available [facility] ([facility]) [address] [place], [address], 08/22/2024 12:08:10 08/20/19 25 08/22/2024 TOXAS SURE FLEX 20, UR anticonvulsa nts +POSIT MATT+ Not Available [facility] ([facility]) [address] [place], [address], 08/22/2024 12:08:10 08/20/19 25 08/22/2024 TOXAS SURE FLEX 20, UR gabapentin ia COMMEN T ug/mL cutoff :1.0 Furth er testi ng indic ated Not Available [facility] ([facility]) [address] [place], [address], 08/22/2024 12:08:10 08/20/19 25 08/22/2024 TOXAS SURE FLEX 20, UR pregabalin Not Detect ed Not Available [facility] ([facility]) [address] [place], [address], 08/22/2024 12:08:10 08/20/19 25 08/22/2024 TOXAS SURE FLEX 20, UR carisoprodol ia Negati ve NG/mL cutoff :100 Not Available [facility] ([facility]) [address] [place], [address], 08/22/2024 12:08:10 08/20/19 25 08/22/2024 TOXAS SURE FLEX 20, UR kratom ia COMMEN T NG/mL cutoff :5.0 Furth er testi ng indic ated Not Available [facility] ([facility]) [address] [place], [address], 08/22/2024 12:08:10 08/20/19 25 08/22/2024 METHA DONE, MS, UR RFX methadone +POSIT MATT+ Not Available [facility] ([facility]) [address] [place], [address], 08/22/2024 12:08:10 08/20/19 25 08/22/2024 METHA DONE, MS, UR RFX methadone >4926 NG/mg _crea t Not Available [facility] ([facility]) [address] [place], [address], 08/22/2024 12:08:10 08/20/19 25 08/22/2024 METHA DONE, MS, UR RFX EDDP (methadone mtb) >4926 NG/mg _crea t Not Available [facility] ([facility]) [address] [place], [address], 08/22/2024 12:08:10 08/20/19 25 08/22/2024 GABAP ENTIN , MS, UR RFX anticonvulsa nts +POSIT MATT+ Not Available [facility] ([facility]) [address] [place], [address], 08/22/2024 12:08:11 08/20/19 25 08/22/2024 GABAP ENTIN , MS, UR RFX gabapentin PRESEN T Not Available [facility] ([facility]) [address] [place], [address], 08/22/2024 12:08:11 08/20/19 25 08/22/2024 KRATO M, MS, UR RFX kratom Negati ve Not Available [facility] ([facility]) [address] [place], [address], 08/22/2024 12:08:11 08/20/19 25 08/22/2024 KRATO M, MS, UR RFX 7-hydroxymit ragynine Not Detect ed Not Available [facility] ([facility]) [address] [facility], [place], [address], 08/22/2024 12:08:11 08/20/19 25 08/19/2024 HbA1c (hemo globi n A1c), blood HbA1c 10.4 Not Available [address], [address], 08/19/2024 15:03:05 08/28/19 25 08/27/2024 TSH + free T4, serum creatine kinase 232 U/L 30-135 high Not Available [facility] (Lab) [address], [place], [address], 09/04/2024 11:25:22 08/28/19 25 08/27/2024 TSH + free T4, serum sodium 139 mmol/ L 136-14 5 normal Not Available [facility] (Lab) [address], [place], [address], 09/04/2024 11:25:22 08/28/19 25 08/27/2024 TSH + free T4, serum potassium 4.1 mmol/ L 3.5-5. 1 normal Not Available [facility] (Lab) [address], [place], [address], 09/04/2024 11:25:22 08/28/19 25 08/27/2024 TSH + free T4, serum chloride 96 mmol/ L 98-107 low Not Available [facility] (Lab) [address], [place], [address], 09/04/2024 11:25:22 08/28/19 25 08/27/2024 TSH + free T4, serum carbon dioxide 35 mmol/ L 22.0-3 0.0 high Not Available [facility] (Lab) [address], [place], [address], 09/04/2024 11:25:22 08/28/19 25 08/27/2024 TSH + free T4, serum anion gap 12.1 mEq/L 5-15 normal Not Available [facility] (Lab) [address], [place], [address], 09/04/2024 11:25:22 08/28/19 25 08/27/2024 TSH + free T4, serum blood urea nitrogen 8 mg/dL 7-17 normal Not Available [facility] (Lab) [address], [place], [address], 09/04/2024 11:25:22 08/28/19 25 08/27/2024 TSH + free T4, serum creatinine 0.80 mg/dL 0.52-1 .04 normal Not Available [facility] (Lab) [address], [place], [address], 09/04/2024 11:25:22 08/28/19 25 08/27/2024 TSH + free T4, serum GFR () 94 mL/mi n >60 normal Not Available [facility] (Lab) [address], [place], [address], 09/04/2024 11:25:22 08/28/19 25 08/27/2024 TSH + free T4, serum GFR 78 mL/mi n >60 normal Not Available [facility] (Lab) [address], [place], [address], 09/04/2024 11:25:22 08/28/19 25 08/27/2024 TSH + free T4, serum glucose 142 mg/dL 74-100 high Not Available [facility] (Lab) [address], [place], [address], 09/04/2024 11:25:22 08/28/19 25 08/27/2024 TSH + free T4, serum calcium 7.5 mg/dL 8.4-10 .2 low Not Available [facility] (Lab) [address], [place], [address], 09/04/2024 11:25:22 08/28/19 25 08/27/2024 TSH + free T4, serum magnesium 1.7 mg/dL 1.6-2. 3 normal Not Available [facility] ([facility] [address] [facility] [address], [place], [address], 09/04/2024 11:25:22 08/28/19 25 08/27/2024 TSH + free T4, serum bilirubin, total 0.8 mg/dL 0.2-1. 3 normal Not Available [facility] (Lab) [address], [place], [address], 09/04/2024 11:25:22 08/28/19 25 08/27/2024 TSH + free T4, serum bilirubin, direct 0.3 mg/dL 0.0-0. 4 normal Not Available [facility] (Lab) [address], [place], [address], 09/04/2024 11:25:22 08/28/19 25 08/27/2024 TSH + free T4, serum indirect bilirubin 0.5 mg/dL 0.0-0. 9 normal Not Available [facility] (Lab) [address] [place] [address] [address], [place], [address], 09/04/2024 11:25:22 08/28/19 25 08/27/2024 TSH + free T4, serum unconjugated bilirubin 0.5 mg/dL 0.0-1. 1 normal Not Available [facility] (Lab) [address] [place] [address] [address], [place], [address], 09/04/2024 11:25:22 08/28/19 25 08/27/2024 TSH + free T4, serum bilirubin, conjugated 0.0 mg/dL 0.0-0. 3 normal Not Available [facility] (Lab) [address], [place], [address], 09/04/2024 11:25:22 08/28/19 25 08/27/2024 TSH + free T4, serum AST 55 U/L 14-36 high Not Available [facility] (Lab) [address], [place], [address], 09/04/2024 11:25:22 08/28/19 25 08/27/2024 TSH + free T4, serum ALT 26 U/L 12-78 normal Not Available [facility] (Lab) [address], [place], [address], 09/04/2024 11:25:22 08/28/19 25 08/27/2024 TSH + free T4, serum C-reactive protein 31.6 mg/L 0-4 high Not Available [facility] (Lab) [address], [place], [address], 09/04/2024 11:25:22 08/28/19 25 08/27/2024 TSH + free T4, serum nt pro brain natriuretic pep. 38.2 pg/mL 0-125 normal Not Available [facility] (Lab) [address], [place], [address], 09/04/2024 11:25:22 08/28/19 25 08/27/2024 TSH + free T4, serum total protein 7.5 g/dL 6.3-8. 2 normal Not Available [facility] (Lab) [address], [place], [address], 09/04/2024 11:25:22 08/28/19 25 08/27/2024 TSH + free T4, serum albumin 4.4 g/dL 3.5-5. 0 normal Not Available [facility] (Lab) [address], [place], [address], 09/04/2024 11:25:22 08/28/19 25 08/27/2024 TSH + free T4, serum triglyceride s 199 mg/dL 30-150 high Not Available [facility] (Lab) [address], [place], [address], 09/04/2024 11:25:22 08/28/19 25 08/27/2024 TSH + free T4, serum cholesterol 202 mg/dL 140-20 0 high Not Available [facility] (Lab) [address], [place], [address], 09/04/2024 11:25:22 08/28/19 25 08/27/2024 TSH + free T4, serum direct LDL cholesterol 120.83 mg/dL 100-12 9 normal Not Available [facility] (Lab) [address], [place], [address], 09/04/2024 11:25:22 08/28/19 25 08/27/2024 TSH + free T4, serum VLDL cholesterol 40 mg/dL 0-40 normal Not Available [facility] (Lab) [address], [place], [address], 09/04/2024 11:25:22 08/28/19 25 08/27/2024 TSH + free T4, serum HDL cholesterol 48 mg/dL 40-60 normal Not Available [facility] (Lab) [address], [place], [address], 09/04/2024 11:25:22 08/28/19 25 08/27/2024 TSH + free T4, serum chol/ HDL ratio 4.2 1-3.5 high Not Available [facility] (Lab) [address], [place], [address], 09/04/2024 11:25:22 08/28/19 25 08/27/2024 TSH + free T4, serum alkaline phosphatase 124 U/L 38-126 normal Not Available [facility] (Lab) [address], [place], [address], 09/04/2024 11:25:22 08/28/19 25 08/27/2024 TSH + free T4, serum thyroid stimulating hormone 77.60 uIU/m L 0.465- 4.68 high Not Available [facility] (Lab) [address], [place], [address], 09/04/2024 11:25:22 08/28/19 25 08/27/2024 TSH + free T4, serum free T4 (free thyroxine) 0.78 NG/dL 0.78-2 .19 normal Not Available [facility] (Lab) [address], [place], [address], 09/04/2024 11:25:22 08/28/19 25 08/27/2024 lab resul t creatine kinase 232 U/L 30-135 high Not Available [facility] (Lab) [address], [place], [address], 09/04/2024 11:17:27 08/28/19 25 08/27/2024 lab resul t sodium 139 mmol/ L 136-14 5 normal Not Available [facility] (Lab) [address], [place], [address], 09/04/2024 11:17:27 08/28/19 25 08/27/2024 lab resul t potassium 4.1 mmol/ L 3.5-5. 1 normal Not Available [facility] (Lab) [facility] [address], [place], [address], 09/04/2024 11:17:27 08/28/19 25 08/27/2024 lab resul t chloride 96 mmol/ L 98-107 low Not Available [facility] (Lab) [address], [place], [address], 09/04/2024 11:17:27 08/28/19 25 08/27/2024 lab resul t carbon dioxide 35 mmol/ L 22.0-3 0.0 high Not Available [facility] (Lab) [address], [place], [address], 09/04/2024 11:17:27 08/28/19 25 08/27/2024 lab resul t anion gap 12.1 mEq/L 5-15 normal Not Available [facility] (Lab) [address], [place], [address], 09/04/2024 11:17:27 08/28/19 25 08/27/2024 lab resul t blood urea nitrogen 8 mg/dL 7-17 normal Not Available [facility] (Lab) [address], [place], [address], 09/04/2024 11:17:27 08/28/19 25 08/27/2024 lab resul t creatinine 0.80 mg/dL 0.52-1 .04 normal Not Available [facility] (Lab) [address], [place], [address], 09/04/2024 11:17:27 08/28/19 25 08/27/2024 lab resul t GFR () 94 mL/mi n >60 normal Not Available [facility] (Lab) [address], [place], [address], 09/04/2024 11:17:27 08/28/19 25 08/27/2024 lab resul t GFR 78 mL/mi n >60 normal Not Available [facility] (Lab) [address], [place], [address], 09/04/2024 11:17:27 08/28/19 25 08/27/2024 lab resul t glucose 142 mg/dL 74-100 high Not Available [facility] (Lab) [address], [place], [address], 09/04/2024 11:17:27 08/28/19 25 08/27/2024 lab resul t calcium 7.5 mg/dL 8.4-10 .2 low Not Available [facility] (Lab) [address], [place], [address], 09/04/2024 11:17:27 08/28/19 25 08/27/2024 lab resul t magnesium 1.7 mg/dL 1.6-2. 3 normal Not Available [facility] (Lab) [address], [place], [address], 09/04/2024 11:17:27 08/28/19 25 08/27/2024 lab resul t bilirubin, total 0.8 mg/dL 0.2-1. 3 normal Not Available [facility] (Lab) [address], [place], [address], 09/04/2024 11:17:27 08/28/19 25 08/27/2024 lab resul t bilirubin, direct 0.3 mg/dL 0.0-0. 4 normal Not Available [facility] (Lab) [address], [place], [address], 09/04/2024 11:17:27 08/28/19 25 08/27/2024 lab resul t indirect bilirubin 0.5 mg/dL 0.0-0. 9 normal Not Available [facility] (Lab) [facility] [address], [place], [address], 09/04/2024 11:17:27 08/28/19 25 08/27/2024 lab resul t unconjugated bilirubin 0.5 mg/dL 0.0-1. 1 normal Not Available [facility] (Lab) [address], [place], [address], 09/04/2024 11:17:27 08/28/19 25 08/27/2024 lab resul t bilirubin, conjugated 0.0 mg/dL 0.0-0. 3 normal Not Available [facility] (Lab) [facility] [address], [place], [address], 09/04/2024 11:17:27 08/28/19 25 08/27/2024 lab resul t AST 55 U/L 14-36 high Not Available [facility] (Lab) [facility] [address], [place], [address], 09/04/2024 11:17:27 08/28/19 25 08/27/2024 lab resul t ALT 26 U/L 12-78 normal Not Available [facility] (Lab) [facility] [address], [place], [address], 09/04/2024 11:17:27 08/28/19 25 08/27/2024 lab resul t C-reactive protein 31.6 mg/L 0-4 high Not Available [facility] (Lab) [facility] [address], [place], [address], 09/04/2024 11:17:27 08/28/19 25 08/27/2024 lab resul t nt pro brain natriuretic pep. 38.2 pg/mL 0-125 normal Not Available [facility] (Lab) [facility] [address], [place], [address], 09/04/2024 11:17:27 08/28/19 25 08/27/2024 lab resul t total protein 7.5 g/dL 6.3-8. 2 normal Not Available [facility] (Lab) [facility] [place], [address], 09/04/2024 11:17:27 08/28/19 25 08/27/2024 lab resul t albumin 4.4 g/dL 3.5-5. 0 normal Not Available [facility] (Lab) [address], [place], [address], 09/04/2024 11:17:27 08/28/19 25 08/27/2024 lab resul t triglyceride s 199 mg/dL 30-150 high Not Available [facility] (Lab) [address], [place], [address], 09/04/2024 11:17:27 08/28/19 25 08/27/2024 lab resul t cholesterol 202 mg/dL 140-20 0 high Not Available [facility] (Lab) [address], [place], [address], 09/04/2024 11:17:27 08/28/19 25 08/27/2024 lab resul t direct LDL cholesterol 120.83 mg/dL 100-12 9 normal Not Available [facility] (Lab) [address], [place], [address], 09/04/2024 11:17:27 08/28/19 25 08/27/2024 lab resul t VLDL cholesterol 40 mg/dL 0-40 normal Not Available [facility] (Lab) [address], [place], [address], 09/04/2024 11:17:27 08/28/19 25 08/27/2024 lab resul t HDL cholesterol 48 mg/dL 40-60 normal Not Available [facility] (Lab) [address], [place], [address], 09/04/2024 11:17:27 08/28/19 25 08/27/2024 lab resul t chol/ HDL ratio 4.2 1-3.5 high Not Available [facility] (Lab) [address], [place], [address], 09/04/2024 11:17:27 08/28/19 25 08/27/2024 lab resul t alkaline phosphatase 124 U/L 38-126 normal Not Available [facility] (Lab) [address] [facility] [address] [place], [address], 09/04/2024 11:17:27 08/28/19 25 08/27/2024 lab resul t thyroid stimulating hormone 77.60 uIU/m L 0.465- 4.68 high Not Available [facility] (Lab) [address], [place], [address], 09/04/2024 11:17:27 08/28/19 25 08/27/2024 lab resul t free T4 (free thyroxine) 0.78 NG/dL 0.78-2 .19 normal Not Available [facility] (Lab) [address], [place], [address], 09/04/2024 11:17:27 08/28/19 25 08/27/2024 HbA1c (hemo globi n A1c), blood A1C 9.1 abnormal Not Available [facility] (Lab) [address], [place], [address], 08/27/2024 20:02:46 10/09/19 25 10/08/2024 rapid flu (A+B) Flu A negati ve Not Available [address], [address], 10/08/2024 15:11:18 10/09/19 25 10/08/2024 rapid flu (A+B) Flu B positi ve Not Available [address], [address], 10/08/2024 15:11:18 10/09/19 25 10/08/2024 rapid SARS CoV 2 Ag, QL, IA, upper respi rator y speci men SARS CoV Ag negati ve Not Available [address], [address], 10/08/2024 15:11:19 10/09/19 25 10/08/2024 rapid strep group A, throa t Strep negati ve Not Available [address], [address], 10/08/2024 15:11:20 01/09/20 25 01/08/2025 HbA1c (hemo globi n A1c), blood HbA1c 7.6 Not Available [address], [address], 01/08/2025 14:58:33 09/14/19 25 09/13/2024 ankle brach ial index No observ ation record ed. [place] [id number] [facility] [address], [place], [address], 09/13/2024 13:29:47 09/14/19 25 09/13/2024 CT, angio gram, coron tammy arter ies, w/wo contr ast No observ ation record ed. [address], [place], [address], 09/16/2024 10:00:32 09/16/19 25 09/13/2024 US, doppl er echoc ardio gram, w/ color flow No observ ation record ed. [place] [id number] [facility] [address], [place], [address], 09/16/2024 09:41:12 10/09/19 25 XR, clavi elias No observ ation record ed. [address], [address], 10/09/2024 16:40:43 02/11/20 25 XR, shoul kei, 2 or more view No observ ation record ed. [address], [address], 02/10/2025 14:04:45 02/11/20 25 XR, clavi elias No observ ation record ed. [address], [address], 02/10/2025 14:04:45 Result Notes None recorded. Problems Name Problem SNOMED Code Status Onset Date Resolution Date Notes Provider Name and Address Organization Details Recorded Time Acute maxillar y sinusiti s 88544176 Completed 201501/07/2016 Problem Code: J01.00; Problem Code Type: ICD-10; Not Available [facility] 2 21:11:17 Irregula r periods 40835668 Active 2018 Not Available [facility] 21:11:18 Type 2 diabetes mellitus without complica tion 006451345 Active 2024 JUSTO WAGNER NP [address] [place] [address], [address] , [employer] 5 15:21:46 Congesti ve heart failure 30630124 Active 2024 JUSTO WAGNER NP [address] [place] [address], [address] , [employer] 5 15:21:28 Hypothyr oidism 51741957 Active 2024 GER PEREZ [address] [place] [address], [address] , [employer] 5 14:34:20 Gastroes ophageal reflux disease without esophagi tis 708811837 Active 2024 JUSTO WAGNER NP [address] [place] [address], [address] [place] [address] , [employer] 15:21:34 Mixed hyperlip idemia 303731514 Active [address], [address] [place] [address] , [employer] 14:33:13 Vitamin D deficien cy 35488124 Active 2024 JUSTO WAGNER NP [address] [place] [address], [address] [place] [address] , [employer] 15:21:48 Thyroid stimulat ing hormone level above referenc e range 424204227 Active 2024 JUSTO WAGNER NP [address] [place] [address], [address] [place] [address] , [employer] 15:21:44 Neuropat hy 470133499 Active 2024 JUSTO WAGNER NP [address] [place] [address], [address] [place] [address] , [employer] 15:21:42 Eczema 65320617 Active 2024 JUSTO WAGNER NP [address] [place] [address], [address] [place] [address] , [employer] 15:21:32 Influenz a caused by Influenz a B virus 57673257 Active 2024 JUSTO WAGNER NP [address] [place] [address], [address] [place] [address] , [employer] 15:33:14 Clavicle pain 005678100 Active 2024 JUSTO WAGNER NP [address] [place] [address], [address] [place] [address] , [employer] 15:44:27 Pain of left shoulder region Active [address], [address] [place] [address] , [employer] 13:41:31 Numbness and tingling sensatio n of skin 92324152291 2 Active [address], [address] , [employer] 13:44:05 Nausea 547691184 Active [address], [address] , [employer] 14:33:21 Problem Notes None recorded. Procedures Surgical History Date Name Laterality Status Provider Name and Address Organization Details Recorded Time Partial hysterectomy completed [facility]. 08/19/2024 14:49:17 ultrasonography guided transcervical radiofrequency ablation of uterine fibroid completed [facility]. 08/19/2024 14:50:06 Tubal Ligation completed [facility]. 08/19/2024 14:51:22 Cholecystectomy completed [facility]. 08/19/2024 14:51:29 Tonsillectomy completed [facility]. 08/19/2024 14:51:42 Thyroidectomy completed [facility]. 08/19/2024 14:52:14 Imaging Results None recorded. Procedure Notes None recorded. Medical Equipment None Reported. Allergies No known drug allergies Medications Name Sig Start Date Stop Date Status Note LastModified by Organization Details LastModified Time cyclobenzap rine 10 mg tablet TAKE 1 TABLET BY MOUTH TWICE DAILY AT BEDTIME NEEDED 02/07 completed Not Available Not Available Not Available furosemide 40 mg tablet Take 1 tablet every day by oral route. 2024 active Not Available Not Available Not Avai lable atorvastati n 20 mg tablet Take 1 tablet every day by oral route in the evening. 2024 active Not Available Not Available Not Avai lable Levoxyl 200 mcg tablet take 1 tablet (200 mcg) by oral route once daily 08/19 completed Not Available Not Available Not Available ibuprofen 800 mg tablet TAKE 1 TABLET BY MOUTH EVERY 12 HOURS NEEDED active Not Available Not Available No t Available benzonatate 200 mg capsule TAKE 1 CAPSULE BY MOUTH THREE TIMES DAILY FOR 10 DAYS NEEDED FOR COUGH 08/19 completed Not Available Not Available Not Available levothyroxi ne 300 mcg tablet TAKE 1 TABLET BY MOUTH DAILY IN THE MORNING ON AN EMPTY STOMACH 2024 active Not Available Not Available Not Avai lable sumatriptan 100 mg tablet 1 tablet PO for migraine, may repeat in 2 hours if needed. 12/20 completed Not Available Not Available Not Available methadone 10 mg tablet Take 95 mg every day by oral route. 02/07 completed Not Available Not Available Not Available glipizide ER 10 mg tablet, extended release 24 hr Take 1 tablet every day by oral route. 2024 active Not Available Not Available Not Avai lable sumatriptan 25 mg tablet 1pill at onset of headache, repeat in 2 hours if no better 05/06 completed Not Available Not Available Not Available cyanocobala min (vit B-12) 1,000 mcg tablet TAKE 1 TABLET BY MOUTH EVERY DAY active Not Available Not Available No t Available topiramate 25 mg tablet Take 1 tablet(s) by mouth bid 10/21 completed Not Available Not Available Not Available omeprazole 40 mg capsule,del ayed release TAKE 1 CAPSULE BY MOUTH DAILY 30 MINUTES BEFORE BREAKFAST 08/19 completed Not Available Not Available Not Available aspirin 81 mg tablet,dejuan yed release Take 1 tablet every day by oral route. 2024 active Not Available Not Available Not Avai lable tramadol 50 mg tablet Take 1 TABLET BY MOUTH EVERY 8 HOURS NEEDED active Not Available Not Available No t Available triamcinolo ne acetonide 0.1 % topical cream APPLY A THIN LAYER TO THE AFFECTED AREA(S) BY TOPICAL ROUTE 2 TIMES PER DAY 2024 active Not Available Not Available Not Avai lable ondansetron 8 mg disintegrat ing tablet DISSOLVE 1 TABLET ON THE TONGUE EVERY 12 HOURS FOR NAUSEA OR VOMITING 2024 active Not Available Not Available Not Avai lable Levoxyl 25 mcg tablet take 1 tablet (25 mcg) by oral route once daily 08/19 completed Not Available Not Available Not Available gabapentin 800 mg tablet Take 1 TABLET BY MOUTH 4 TIMES DAILY active Not Available Not Available No t Available cephalexin 500 mg capsule TAKE 1 CAPSULE BY MOUTH EVERY 8 HOURS FOR 10 DAYS 08/19 completed Not Available Not Available Not Available lansoprazol e 30 mg capsule,del ayed release Take 1 capsule every day by oral route. 2024 active Not Available Not Available Not Avai lable metoprolol tartrate 50 mg tablet Take 1 tablet twice a day by oral route. 2024 active Not Available Not Available Not Avai lable Levoxyl 50 mcg tablet Take 1 tablet(s) by mouth daily 05/07 completed Not Available Not Available Not Available furosemide 20 mg tablet TAKE 1 TABLET BY MOUTH DAILY 08/19 completed Not Available Not Available Not Available ergocalcife rol (vitamin D2) 1,250 mcg (50,000 unit) capsule TAKE 1 CAPSULE BY MOUTH EVERY WEEK 08/19 completed Not Available Not Available Not Available ropinirole 5 mg tablet TAKE 1 TABLET BY MOUTH THREE TIMES DAILY 08/19 completed Not Available Not Available Not Available fluticasone propionate 50 mcg/actuati on nasal spray,suspe nsion 2 spray(s) in each nostril daily prn 05/06 completed Not Available Not Available Not Available pseudoephed rine 60 mg tablet Take 1 tablet(s) by mouth q 6 hr prn for congestio n 01/06 completed Not Available Not Available Not Available amoxicillin 875 mg-potassiu m clavulanate 125 mg tablet TAKE 1 TABLET BY MOUTH EVERY 12 HOURS FOR 10 DAYS 08/19 completed Not Available Not Available Not Available potassium chloride ER 10 mEq tablet,exte nded release(par t/cryst) TAKE 1 TABLET BY MOUTH TWICE DAILY WITH FOOD active Not Available Not Available No t Available bupropion HCl XL 150 mg 24 hr tablet, extended release Take 1 tablet every day by oral route. 2024 active Not Available Not Available Not Avai lable Januvia 100 mg tablet Take 1 tablet every day by oral route. 2024 active Not Available Not Available Not Avai lable Suboxone 8 mg-[address] 1 film(s) under the tongue BID 08/19 completed Not Available Not Available Not Available Linzess 145 mcg capsule Take 1 capsule(s ) by mouth daily 30 minutes before the first meal of the day. 02/18 completed Not Available Not Available Not Available BinaxNOW COVID-19 Ag Self Test kit TEST DIRECTED TODAY 09/20 completed Not Available Not Available Not Available Mounjaro 7.5 mg/0.5 mL subcutaneou s pen injector Inject 0.5 mL every week by subcutane ous route. 2024 active Not Available Not Available Not Avai lable Mounjaro 5 mg/0.5 mL subcutaneou s pen injector ADMINISTE R 5 MG UNDER THE SKIN EVERY WEEK 01/08 completed Not Available Not Available Not Available Mounjaro 10 mg/0.5 mL subcutaneou s pen injector Inject 0.5 mL every week by subcutane ous route. 2024 active Not Available Not Available Not Avai lable Mounjaro 2.5 mg/0.5 mL subcutaneou s pen injector ADMINISTE R 2.5 MG UNDER THE SKIN EVERY WEEK 09/20 completed Not Available Not Available Not Available Dexcom G7 Sensor device USE DIRECTED TO CHECK BLOOD SUGAR 02/07 completed Not Available Not Available Not Available Ozempic 0.25 mg or 0.5 mg (2 mg/3 mL) subcutaneou s pen injector INJECT 0.25MG UNDER THE SKIN ONCE A WEEK 08/19 completed Not Available Not Available Not Available Vitals Date Recorded Body height Body mass index (BMI) Body weight Heart rate Oxygen saturation Oxygen saturation in Arterial blood by Pulse oximetry Systolic And Diastolic Provider Name and Address Organization Details Last Updated DateTime 5 160.02 cm 37.9 kg/m2 80463.7 7 g 75 /min 97 % 97 % 112/76 mm[Hg] ALEX TAMAYO [facility] [employer] 5 11:28:19 Date Recorded Body height Body mass index (BMI) Body weight Heart rate Oxygen saturation Oxygen saturation in Arterial blood by Pulse oximetry Systolic And Diastolic Provider Name and Address Organization Details Last Updated DateTime 5 160.02 cm 37.2 kg/m2 94070.4 g 67 /min 93 % 93 % 123/83 mm[Hg] ALEX TAMAYO [employer] 5 13:36:17 Date Recorded Body height Body mass index (BMI) Body weight Body temperature Heart rate Oxygen saturation Oxygen saturation in Arterial blood by Pulse oximetry Systolic And Diastolic Provider Name and Address Organization Details Last Updated DateTime 5 160.02 cm 37.4 kg/m2 67445.9 9 g 97.7 [degF] 63 /min 94 % 94 % 126/78 mm[Hg] Ruben Lyons [employer] 5 15:13:20 Date Recorded Body height Body mass index (BMI) Body weight Heart rate Oxygen saturation Oxygen saturation in Arterial blood by Pulse oximetry Systolic And Diastolic Provider Name and Address Organization Details Last Updated DateTime 5 160.02 cm 36.7 kg/m2 71920.6 2 g 67 /min 97 % 97 % 122/84 mm[Hg] ALEX TAMAYO [employer] 5 14:57:57 Date Recorded Body height Body mass index (BMI) Body weight Heart rate Oxygen saturation Oxygen saturation in Arterial blood by Pulse oximetry Systolic And Diastolic Provider Name and Address Organization Details Last Updated DateTime 5 160.02 cm 36.2 kg/m2 03870.6 4 g 82 /min 95 % 95 % 114/78 mm[Hg] ALEX TAMAYO [employer] 5 13:33:19 Social History Question Answer Notes LastModified by Organizat ion Details LastModified Time Tobacco Smoking Status [facility]24 14:46:51 Is Your Home Air Conditioned? Yes [email or web address] Information not available 08/19/2024 Do You Wear A Helmet When Biking? Yes [email or web address] Information not available 10/08/2024 Are You A Caregiver? No [email or web address] Information not available 08/19/2024 In The 14 Days Before Symptom Onset, Have You Had Close Contact With A Laboratory-confirm ed COVID-19 While That Case Was Ill? No [email or web address] Information n ot available 08/19/2024 In The 14 Days Before Symptom Onset, Have You Had Close Contact With A Person Who Is Under Investigation For COVID-19 While That Person Was Ill? No Information not available 08/19/2024 Have You Been To An Area Known To Be High Risk For COVID-19? No [email or web address] Information not available 08/19/2024 Have There Been Any Changes To Your Family Or Social Situation? No Information no t available 08/19/2024 Are There Any Guns Present In Your Home? No [email or web address] Information not available 08/19/2024 What Was The Date Of Your Most Recent Tobacco Screening? 02/07/2025 [email or web address] Information not available 02/07/2025 What Is Your Relationship Status? Single [email or web address] Information not available 08/19/2024 Do You Use Your Seat Belt Or Car Seat Routinely? Yes [email or web address] Information not available 10/08/2024 Do You Have Smoke And Carbon Monoxide Detectors In Your Home? Yes [email or web address] Information not available 08/19/2024 Are You Passively Exposed To Smoke? No [email or web address] Information no t available 08/19/2024 Are There Any Smokers In Your House? No [email or web address] Information not available 08/19/2024 Do You Participate In Social Media? Yes [email or web address] Information not available 10/08/2024 Do You Use Sunscreen Routinely? Yes [email or web address] Information not available 08/19/2024 Have You Recently Traveled Abroad? No [email or web address] Information not available 08/19/2024 Sex: Unknown Functional Status Question Answer Note LastModified by Organizat ion Details LastModified Time Do you use any illicit or recreational drugs? No Prior use of opiates, prescribed methadone [email or web address] Information not available 08/19/2024 Do you or have you ever used any other forms of tobacco or nicotine? No [email or web address] Information not available 08/19/2024 What is your level of alcohol consumption? None [email or web address] Information not available 08/19/2024 Mental Status None recorded. Family History Relationship Description Onset Age of this Age Resolved Age Notes LastModified by Organization Details LastModified Time Unspecified Relation Family history of Myocardial infarction Relati ve: ''; [email or web address] Not available 02/01/2022 23:01:10 Unspecified Relation Family history of drug abuse Relati ve: ''; [email or web address] Not available 02/01/2022 23:01:12 Unspecified Relation Family history of diabetes mellitus type 2 Relati ve: ''; [email or web address] Not available 02/01/2022 23:01:12 Unspecified Relation Family history of congestive heart failure Relati ve: ''; [email or web address] Not available 02/01/2022 23:01:12 Unspecified Relation Family history of Hypertension Relati ve: ''; [email or web address] Not available 02/01/2022 23:01:15 Medical History Condition Response Emergency room visit since last appointm ent. N Vision or Eye Problems Y History of abnormal pap Y Heart Problems Y Hospitalizations N Gynecological History Statement/Question Response Date of Last Pap Smear Most Recent Mammogram Obstetrics History GPAL:G 0 P 0 0 0 0 Immunizations Vaccine Type Date Status Note Provider Nam e and Address Organization Details Recorded Time Hep B, adult 09/02/2008 completed ALEX TAMAYO [facility], [place] [employer] 08/19/2024 15:53:53 Hep A, ped/adol, 2 dose 09/02/2008 completed ALEX [place]ary [place] [employer] 08/19/2024 15:53:53 Past Encounters Encounter ID Performer Location Encounter Start Date Encounter Closed Date Diagnosis/Indication Diagnosis SNOMED-CT Code Diagnosis ICD10 Code Diagnosis IMO Codes Diagnosis Note [id number] REED ZAMORANO [address] [address] 08/19/2024 14:17:47 08/19/2024 15:53:52 Type 2 diabetes mellitus without complication 190082849 E11.9 Congestive heart failure 47054292 I50.9 Hypothyroidism 05403128 E03.9 History of thyroidectomy 063905085 Z90.09 Gastroesop hageal reflux disease without esophagitis 963702282 K21.9 Mixed hyperlipidemia 267 483005 E78.2 Vitamin D deficiency 347 38428 E55.9 Long-term current use of drug therapy 596233258 Z79.044 [id number] REED HOFFMAN [facility] [address] [place] [address] 08/29/2024 11:21:31 08/29/2024 12:00:51 Type 2 diabetes mellitus without complication 966718309 E11.9 [id number] REED [facility] [address] [place] [address] 09/20/2024 13:29:19 09/20/2024 13:53:10 Type 2 diabetes mellitus without complication 107403912 E11.9 Eczema 77225583 L30.9 [id number] JUSTO WAGNER NP [facility] [address] [place] [address] 10/08/2024 15:03:40 10/08/2024 15:57:52 Viral screening status 500552230 Z11.59 736302 Body mass index 30+ - obesity 859827387 Z68.37 48453399 Influenza caused by Influenza B virus 96365871 J10.1 852849 Pt advised to rest, drink clear fluids, use a humidifier , gargle with warm salt water, use Acetominop hen for fever prophylaxi s. Pt will notify provider: if temp >101 or persists for >3weeks, if there is blood in the stool or vomit, if there are any signs of dehydratio n, or any problems breathing. Clavicle pain 792954378 M89.8X1 [id number] will call with xray results. [id number] REED [facility] [address] [place] [address] 01/08/2025 14:44:56 01/08/2025 16:05:32 Depressive disorder 68711824 F32.9 Type 2 damien betes mellitus without complication 479274589 E11.9 Counseling 252645457 Z71 .9 [id number] REED [facility] [address] [place] [address] 02/07/2025 13:22:03 02/07/2025 14:38:09 Clavicle pain 435666531 M89.8X1 27534445 Pain of le ft shoulder region 7253162123 M25.512 13180982 Numbness a nd tingling sensation of skin 1408616810 02 R20.0 R20.2 482560 Health Concerns Section Related Observation LastModified by Organization Detai ls LastModified Time None Recorded Concern Status LastModified by Organization Details LastModified Time None Recorded Advance Directives Directive None Recorded Payers Insurance Date Sequence Insurance Name Policy Number Policy Miller Covered Member ID Miller Member ID Guarantor Name 08/19/2024 1 *SELF PAY* Cr shilo Ruvalcaba 02/10/2025 1 [facility] (MEDICAID REPLACEMENT - HMO) Radha Ruvalcaba [id number] Radha Ruvalcaba Notes Date Note Type Note Provider Name and Address Organization Details Recorded Time 08/29/2024 text/html ROS as noted in the HPI Follow-up: saw cardiology and they were concerned about labs. Dexcom has been running under 200. [facility] GER PEREZ [address] [place] [address], [phone], [employer] 08/29/2024 11:53:09 09/20/2024 text/html ROS as noted in the [facility] Diabetes follow-up: States her blood sugars have been much better recently. Follow-up with cardiology on September 26. GER PEREZ [address] [place] [address], [phone], [employer] 09/20/2024 14:04:50 10/08/2024 text/html CoughReported by PatientROS as noted in the HPI Patient presents with sore throat, headache, cough, congestion, and low grade fever for around 2 days. She reports shes had mild shortness of breath but also reports history of CHF and states this is about her baseline. She is also reporting pain of left clavicle. Reports that she broke her clavicle a few years ago. Reports normal ROM in shoulder. Denies any known trauma. JUSTO WAGNER NP [address] [place], [address], [employer] 10/08/2024 15:56:26 01/08/2025 text/html Anxiety/Depressi onRepo rted by PatientHPIFor severity, patient reportsincreased anxiety,interference with activities of daily living, andinterference with sleep. For context, patient reportsbereavement. For associated symptoms, patient reportssleeping more (hypersomnia).ROS as noted in the HPI Increasing stress at home. Recent of her brother ~1 week ago. Cares for several children in her home. Thought she was on anxiety medication. LAYTON PEREZ [address] [place], [address], [employer] 01/08/2025 15:49:41 02/07/2025 text/html ROS as noted in the HPI Fell last night onto left shoulder, left side of neck. Some left hand numbness. Difficulty with ROM. Left clavicular pain as well. Pain to left foot, previous fracture to that location. LAYTON PEREZ [address] [place], [address], [employer] 02/07/2025 13:57:05 OBGyn Episode No OBEpisode recorded.
--- OUTSIDE RECORDS SUMMARY | 2025-03-19 00:03 | XMS_ITS | Continuity of Care Document ---
Author Organization [facility] [employer] [facility] Address [address] [place] [address] Assessment Encounter Date Assessment Date Assessment LastModified by Organization Details LastModified Time 02/07/2025 02/07/2025 Will complete x-rays as noted to further evaluate. Tramadol provided for pain control. 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 Advised to follow-up in 3 months or sooner if needed. [email or web address] Not available 02/07/2025 13:56:35 Plan of Treatment Reminders Order Date Submit Date Provider Last Modified By Organization Details Last Modified Time Details Appointments None recorded. Lab None recorded. 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 Surgeries None recorded. Imaging XR, shoulder, 2 or more view 2024 [email or web address] [place] [address], [id number], 5 11:34:22 XR, clavicle 2024 [email or web address] [place] [address], [id number], 5 11:34:22 Medication Orders tramadol 50 mg tablet 2024 025 [facility], [address] [place], [address], 13:49:12 Patient TargetsNo targets recorded. Patient InstructionsNo instructions recorded. 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 [address], [address], 02/10/2025 14:04:45 02/11/20 25 XR, clavi elias No observ ation record ed. [address], [address], 02/10/2025 14:04:45 Result Notes None recorded. Problems Name Problem SNOMED Code Status Onset Date Resolution Date Notes Provider Name and Address Organization Details Recorded Time Acute maxillar y sinusiti s 90572125 Completed 201501/07/2016 Problem Code: J01.00; Problem Code Type: ICD-10; Not Available [facility] 21:11:17 Irregula r periods 70468178 Active 2018 Not Available [facility] 21:11:18 Type 2 diabetes mellitus without complica tion 664209645 Active 2024 JUSTO WAGNER, PEBBLES [address] [facility], [place], [address] , [facility] [employer] [place] [employer] 15:21:46 Congesti ve heart failure 79061510 Active 2024 JUSTO WAGNER NP [address] [place] [address], [address] [place] [address] , [employer] 15:21:28 Hypothyr oidism 81528264 Active [address], [address] [place] [address] , [employer] 14:34:20 Gastroes ophageal reflux disease without esophagi tis 320377239 Active 2024 JUSTO WAGNER NP [address] [place] [address], [address] [place] [address] , [employer] 15:21:34 Mixed hyperlip idemia 475920706 Active [address], [address] [place] [address] , [employer] 14:33:13 Vitamin D deficien cy 45973343 Active 2024 JUSTO WAGNER NP [address] [place] [address], [address] [place] [address] , [employer] 15:21:48 Thyroid stimulat ing hormone level above referenc e range 814434340 Active 2024 JUSTO WAGNER NP [address] [place] [address], [address] [place] [address] , [employer] 15:21:44 Neuropat hy 950050014 Active 2024 JUSTO WAGNER NP [address] [place] [address], [address] [place] [address] , [employer] 15:21:42 Eczema 61074809 Active 2024 JUSTO WAGNER NP [address] [place] [address], [address] [place] [address] , [employer] 05/13/202 5 15:21:32 Influenz a caused by Influenz a B virus 09278924 Active 2024 JUSTO WAGNER, STITCHER [employer] [address] [place] [address], [address] [place] [address] , [employer] 15:33:14 Clavicle pain 916395473 Active 2024 JUSTO WAGNER, [employer] [address] [place] [address], [address] [place] [address] , [employer] 15:44:27 Pain of left shoulder region Active [address], [address] [place] [address] , [employer] 13:41:31 Numbness and tingling sensatio n of skin 26055165636 2 Active [address], [address] [place] [address] , [employer] 13:44:05 Nausea 771796557 Active 2024 REED ZAMORANO [address], [address] [place] [address] , [employer] 14:33:21 Problem Notes None recorded. Procedures Surgical History Date Name Laterality Status Provider Name and Address Organization Details Recorded Time Partial hysterectomy completed [employer] 08/19/2024 14:49:17 ultrasonography guided transcervical radiofrequency ablation of uterine fibroid completed [employer] 08/19/2024 14:50:06 Tubal Ligation completed [employer] 08/19/2024 14:51:22 Cholecystectomy completed [employer] 08/19/2024 14:51:29 Tonsillectomy completed [employer] 08/19/2024 14:51:42 Thyroidectomy completed [employer] 08/19/2024 14:52:14 Imaging Results None recorded. Procedure [...] completed Not Available Not Available Not Available [employer] COVID-19 Ag Self Test kit TEST DIRECTED [...] and Address Organization Details Last Updated DateTime 160.02 cm 36.2 kg/m2 50327.6 4 g 82 /min 95 % 95 % 114/78 mm[Hg] ALEX BELKIS [employer] 13:33:19 Social History Question Answer Notes LastModified by Organizat ion Details LastModified Time Tobacco Smoking Status Never Smoker ALEX BELKIS cleary [employer] 08/19/2024 14:46:51 Is Your Home Air Conditioned? Yes [email or web address] Information not available 08/19/2024 Do You Wear A Helmet When Biking? Yes [email or web address] Information not available 10/08/2024 Are You A Caregiver? No [email or web address] Information not available 08/19/2024 In The 14 Days Before Symptom Onset, Have You Had Close Contact With A Laboratory-confirm ed COVID-19 While That Case Was Ill? No [email or web address] Information n ot available 08/19/2024 In The 14 Days Before Symptom Onset, Have You Had Close Contact With A Person Who Is Under Investigation For COVID-19 While That Person Was Ill? No [email or web address] Information not available 08/19/2024 Have You Been To An Area Known To Be High Risk For COVID-19? No Information not available 08/19/2024 Have There Been Any Changes To Your Family Or Social Situation? No [email or web address] Information no t available 08/19/2024 Are There Any Guns Present In Your Home? No [email or web address] Information not available 08/19/2024 What Was The Date Of Your Most Recent Tobacco Screening? 02/07/2025 [email or web address] Information not available 02/07/2025 What Is Your Relationship Status? Single [email or web address] Information not available 08/19/2024 Do You Use Your Seat Belt Or Car Seat Routinely? Yes [email or web address] Information not available 10/08/2024 Do You Have Smoke And Carbon Monoxide Detectors In Your Home? Yes Information not available 08/19/2024 Are You Passively Exposed To Smoke? No [email or web address] Information no t available 08/19/2024 Are There Any Smokers In Your House? No [email or web address] Information not available 08/19/2024 Do You Participate In Social Media? Yes [email or web address] Information not available 10/08/2024 Do You Use Sunscreen Routinely? Yes [email or web address] Information not available 08/19/2024 Have You Recently Traveled Abroad? No [email or web address] Information not available 08/19/2024 Sex: Unknown Functional Status Question Answer Note LastModified by Organizat ion Details LastModified Time Do you use any illicit or recreational drugs? No Prior use of opiates, prescribed methadone Information not available 08/19/2024 Do you or have you ever used any other forms of tobacco or nicotine? No [email or web address] Information not available 08/19/2024 What is your level of alcohol consumption? None Information not available 08/19/2024 Mental Status None [...] available 02/01/2022 23:01:15 Medical History Condition Response Heart Problems Y Hospitalizations N Emergency room visit since last appointm ent. N Vision or Eye Problems Y History of abnormal pap Y Gynecological History Statement/Question Response Date of Last Pap Smear Most Recent Mammogram Obstetrics History GPAL:G 0 P 0 0 0 0 Immunizations Vaccine Type Date Status Note Provider Nam e and Address Organization Details Recorded Time Hep B, adult 09/02/2008 completed ALEX TAMAYO evin, [employer] [facility] [employer] 08/19/2024 15:53:53 Hep A, ped/adol, 2 dose 09/02/2008 completed ALEX cleary [employer] [facility] [employer] 08/19/2024 15:53:53 Past Encounters Encounter ID Performer Location Encounter Start Date Encounter Closed Date Diagnosis/Indication Diagnosis SNOMED-CT Code Diagnosis ICD10 Code Diagnosis IMO Codes Diagnosis Note [id number] REED ZAMORANO [facility] [employer] [address] [place] [address] 01/08/2025 14:44:56 01/08/2025 16:05:32 Depressive disorder 71754634 F32.9 Type 2 damien betes mellitus without complication 443763055 E11.9 Counseling 676853931 Z71 .9 [id number] REED ZAMORANO [facility] [employer] [address] [employer] [address] 02/07/2025 13:22:03 02/07/2025 14:38:09 Clavicle pain 388174997 M89.8X1 48978706 Pain of le ft shoulder region 4372515726 M25.512 41856618 Numbness a nd tingling sensation of skin 1606529431 02 R20.0 R20.2 585617 Health Concerns Section Related Observation LastModified by Organization Detai ls LastModified Time None Recorded Concern Status LastModified by Organization Details LastModified Time None Recorded Payers Encounter Date Sequence Insurance Name Policy Number Policy Miller Covered Member ID Miller Member ID Guarantor Name 02/07/2025 1 [employer] (MEDICAID REPLACEMENT - HMO) Radha Ruvalcaba [id number] Radha Ruvalcaba Notes Date Note Type Note Provider Name and Address Organization Details Recorded Time 02/07/2025 text/html ROS as noted in the HPI Fell last night onto left shoulder, left side of neck. Some left hand numbness. Difficulty with ROM. Left clavicular pain as well. Pain to left foot, previous fracture to that location. DIPIKA PEREZP-[address], [address], [facility] - [facility] [employer] 02/07/2025 13:57:05 OBGyn Episode No OBEpisode recorded.
[2025-03-19 00:08] LABS: Alanine Aminotransferase 24 U/L (12-78); Albumin Level 4.3 g/dl (3.5-5.0); Albumin/Globulin Ratio 1.4 (1.1-1.8); Alkaline Phosphatase 173 U/L (38-126); Anion Gap 12.6 mEq/L (5-15); Aspartate Amino Transferase 42 U/L (14-36); Bilirubin,Total 0.6 mg/dl (0.2-1.3); Blood Urea Nitrogen 12 mg/dl (7-17); Calcium 8.5 mg/dl (8.4-10.2); Carbon Dioxide 31 mmol/L (22.0-30.0); Chloride 97 mmol/L (98-107); Creatinine Clearance Estimated 134 mL/min (50-200); Creatinine,Serum 0.80 mg/dl (0.52-1.04); Estimated Glomerular Filt Rate 78 ml/min (>60); GFR (African American) 94 ML/MIN (>60); Globulin 3.1 g/dL (1.3-3.2); Glucose 203 mg/dl (74-100); Potassium 3.6 mmoL/L (3.5-5.1); Sodium 137 mmol/L (136-145); Total Protein,Serum 7.4 g/dl (6.3-8.2)
[2025-03-19] MEDS: IOPAMIDOL-370 (76%);100ML BOTTLE 160 ML IV (01:12)
[2025-03-19] MEDS: SODIUM CHLORIDE 0.9% 10ML SYR (RAD ONLY) 10 ML IV ×2 (01:12→13:11)
[2025-03-19] MEDS: 0.9 % SODIUM CHLORIDE 50 ML VIAL 100 ML IV (01:12)
[2025-03-19] MEDS: KETOROLAC 30MG/ML VIAL 30 MG IV (01:42)
[2025-03-19] MEDS: ACETAMINOPHEN 500MG TAB 1000 MG PO (01:42)
[2025-03-19 02:40] LABS: Hepatitis C Ab Qual. W/ RFX REACTIVE (Negative)
--- NOTE | 2025-03-19 03:05 | PC.NURSE ---
Report given to Teena Miller RN
--- NOTE | 2025-03-19 03:11 | P.HP_ITS ---
<Statement entered by Néstor Lujan MD - 03/21/25 12:57> Agree with plan of care as outlined by the [facility]. History of Present Illness *Admission Date: 03/19/25 *Reason for visit:: Fall *History of present illness: This is a 44-year-old female with a past medical history significant for HFpEF, hypothyroidism, diabetes, and hypertension who fell down some stairs and post fall had multiple areas of pain. Due to patient's symptoms, she presented to the emergency room for evaluation. While in the emergency room, patient was trauma scanned and there were no acute fractures or findings found on her imaging; however, CT scan of the head did reveal a incidental finding of a type I Chiari malformation at the craniovertebral junction and a MRI was recommended. These findings were discussed with the patient and she had no knowledge of this. Family is reporting that patient is still having some odd statements during her conversation. Moreover, ER provider was concerned that cervical spine was not clear. As a result, patient is being admitted for further management. During my evaluation of the patient, she was resting quietly while in the emergency room. Family member states that patient does not seem like she is at her baseline. They report that she has been making odd statements and they think that since patient is not sleeping well then she is probably suffering from fatigue. I asked was patient speaking normally prior to fall, and they state that patient was indeed talking normally prior to fall. Is been reported that patient missed a few stairs and at the base of the stairwell she hit her head and neck. She was still in C-spine and family members are reporting that she is sensitive to light, and she is complaining of pain behind her eyes. She is currently denying any chest pain, lightheadedness, syncope, near syncope, fever, chills, rigors, nausea, vomiting, or diarrhea. She still complains of diffuse head and neck pain. Additional pertinent vitals obtained include a chloride of 97, carbon oxide of 31, blood glucose of 203, AST of 42, and alkaline phosphate of 173. [facility] Disclaimer: The information contained in this section may have been updated after the patient was seen, as this information can be updated by other users. Medical History Numbness and tingling of both upper extremities Numbness and tingling of both legs Pain in both upper extremities Pain in both lower extremities Palpitations Edema Dizziness GERD (gastroesophageal reflux disease) Diverticulitis Diabetes Congestive heart failure Hyperthyroidism Surgical History History of thyroidectomy History of hysterectomy History of cholecystectomy Social History Smoking Status: Never smoker alcohol intake: never current occupational status: employed Travel in the last 8 weeks?: None Other Medical History Have you received the Flu Vaccine for this season: No Have you received the Pneumonia Vaccine: No Review of Systems Review of Systems Review of systems:: pertinent systems reviewed and negative unless documented below Constitutional Constitutional: Reports headache(s) Eyes Eyes: Reports system reviewed and no additional complaints, except as documented ENT Ears, Nose, Mouth, and Throat: Reports headache(s) and Reports neck pain *Cardiovascular Cardiovascular: Reports system reviewed and no additional complaints, except as documented *Respiratory Respiratory: Reports system reviewed and no additional complaints, except as documented *Gastrointestinal Gastrointestinal: Reports system reviewed and no additional complaints, except as documented *Genitourinary Genitourinary: Reports system reviewed and no additional complaints, except as documented *Musculoskeletal Musculoskeletal: Reports neck pain and Reports numbness Integumentary/Breasts Skin/Breast: Reports system reviewed and no additional complaints, except as documented *Neurologic Neurologic: Reports confusion, Reports headache(s) and Reports numbness Psychiatric Psychiatric: Reports confusion Endocrine Endocrine: Reports system reviewed and no additional complaints, except as documented Hematologic/Lymphatic Hematologic/Lymphatic: Reports system reviewed and no additional complaints, except as documented Allergic/Immunologic Allergic/Immunologic: Reports system reviewed and no additional complaints, exce pt as documented Meds Home Medications and Allergies Home Medications ?Medication ?Instructions ?Recorded ?Confirmed ?Type ibuprofen 600 mg tablet 600 mg PO Q6HP PRN Mild Pain #30 07/03/23 09/13/24 Rx tabs aspirin 81 mg tablet,delayed 81 mg PO DAILY 08/27/24 0 09/13/24 History release atorvastatin 20 mg tablet 10 mg PO DAILY 08/27/2408/27 History blood-glucose sensor (Dexcom G7 #1 ea 08/27/24 5 History Sensor device) furosemide 40 mg tablet 40 mg PO DAILY 08/27/2408/27 History gabapentin 800 mg tablet 800 mg PO QID 08/27/2409/13 History glipizide 10 mg tablet, extended 10 mg PO DAILY 09/13/24 History release 24 hr lansoprazole 30 mg capsule,delayed 30 mg PO DAILY 06/2209/13/24 History release levothyroxine 300 mcg tablet 300 mcg PO DAILY 08/27/24 09/13/24 History metoprolol tartrate 50 mg tablet 50 mg PO DAILY 09/13/24 History potassium chloride 10 mEq 10 meq PO DAILY 08/27/24 History tablet,extended release(part/cryst) tirzepatide 2.5 mg/0.5 mL 2.5 mg SQ WEEKLY 08/27/24 History subcutaneous pen injector (Mounjaro) New Prescriptions to Start Prescriptions: Allergies Allergy/AdvReac Type Severity Reaction Status Date / Time No Known Allergies Allergy Verified 09/13/24 12:06 Exam Data for Last 24 hours Vital signs and Labs for Last 24 Hours: Temp Pulse Resp BP Pulse Ox O2 Del Method 99.1 F 78 9 L 106/82 L 92 L Room Air 03/18/25 23:51 03/19/25 03:00 03/19/25 03:00 03/19/25 03:00 03/19/25 03:00 03/19/25 00:21 Laboratory Results - last 24 hr 03/18/25 23:50: WBC 6.8, RBC 4.55, Hgb 12.8, Hct 38.1, MCV 83.7, MCH 28.1, MCHC 33.6, RDW 13.9, Plt Count 192, MPV 10.0, Neut % (Auto) 56.3, Lymph % (Auto) 35.8, [place] % (Auto) 5.9, Eos % (Auto) 1.3, Baso % (Auto) 0.4, Neut # (Auto) 3.8, Lymph # (Auto) 2.4, [place] # (Auto) 0.4, Eos # (Auto) 0.1, Baso # (Auto) 0.0, Sodium 137, Potassium 3.6, Chloride 97 L, Carbon Dioxide 31 H, Anion Gap 12.6, BUN 12, Creatinine 0.80, Estimated Creat Clear 134, Estimated GFR 78, Est GFR ( Amer) 94, Glucose 203 H, Calcium 8.5, Total Bilirubin 0.6, AST 42 H, ALT 24, Alkaline Phosphatase 173 H, Total Protein 7.4, Albumin 4.3, Globulin 3.1, Albumin/Globulin Ratio 1.4, HCV Ab JEN w/Rflx PCR Qn Reactive, HIV Ag/Ab Combo Qual Negative I & O for Last 24 hours: Intake & Output 03/16/25 03/17/25 03/18/25 03/19/25 23:59 23:59 23:59 23:59 Weight 95.254 kg Constitutional Constitutional: no acute distress, obese and cooperative *Routine HEENT Exam Head: Present normocephalic and atraumatic Eye: Present EOMI and PERRL ENT: Present mucous membranes moist *Routine Neck Exam Neck: Present supple, trachea midline and trauma *Routine Respiratory Exam Respiratory: Present CTA bilaterally, normal respiratory effort, able to speak in complete sentences and symmetric chest movement *Routine Cardiovascular Exam Cardiovascular: Present RRR, Normal S1 and Normal S2 *Routine Abdominal Exam Abdominal: Present soft, normoactive bowel sounds and obese *Routine Rectal Exam Rectal:: deferred *Routine Genitalia Exam Genitalia:: deferred *Routine Extremities Exam Extremities: Present pulses intact and normal capillary refill Comments: Patient has nonfocal weakness in all 4 extremities most likely related to pain Routine Back/Spine/Pelvis Exam Back/Spine: Present pain with flexion and pain with rotation *Routine Skin Exam Skin: Present intact, dry and warm *Routine Neurological Exam Neurological: Present altered mental status and moving all extremities Routine Psychiatric Exam Psychiatric: Present normal affect, normal thought process, cooperative, good insight and good judgment H&P: Result Impressions 44-year-old female who presents after sustaining a fall down a flight of stairs without any obvious trauma noted patient is still complaining photosensitivity, thoracic pain, and she had an incidental finding of a type I chrari malformation Assessment and Plan *Assessment and plan (1) Concussion: Status: Acute Qualifiers: Encounter type: initial encounter Loss of consciousness presence/duration: with LOC of 30 min or less Qualified Code(s): S06.0X1A - Concussion with loss of consciousness of 30 minutes or less, initial encounter Category: Medical Code(s): S06.0XAA - Concussion with loss of consciousness status unknown, initial en counter (2) Fall: Status: Acute Qualifiers: Encounter type: initial encounter Qualified Code(s): W19.XXXA - Unspecified fall, initial encounter Category: Medical Code(s): W19.XXXA - Unspecified fall, initial encounter (3) AMS (altered mental status): Status: Acute Qualifiers: Altered mental status type: unspecified Qualified Code(s): R41.82 - Altered mental status, unspecified Category: Medical Code(s): R41.82 - Altered mental status, unspecified (4) Hyperglycemia: Status: Acute Category: Medical Code(s): R73.9 - Hyperglycemia, unspecified (5) Headache: Status: Acute Qualifiers: Headache type: unspecified Headache chronicity pattern: acute headache Intractability: intractable Qualified Code(s): R51.9 - Headache, unspecified Category: Medical Code(s): R51.9 - Headache, unspecified (6) Elevated liver enzymes: Status: Acute Category: Medical Code(s): R74.8 - Abnormal levels of other serum enzymes Plan Assessment: Fall with no obvious trauma Headache Possible concussion Cervical neck pain Photophobia Altered mental status -Will maintain C-spine precautions until after MRI of the spine and definitively rules out any pathology to the C-spine - Will further evaluate findings on MRI - Neurochecks every shift - Patient's confusion may be due to mild concussion - Monitor vital signs every 4 hours Hyperglycemia -Most likely due to diabetes -Sliding scale insulin AC and at bedtime Elevated liver enzymes - Will monitor for now Plan: Admit patient to the MedSurg unit SCDs to bilateral lower extremities Due to patient's recent trauma I would like to avoid heparinizing patient all there were no bleeds I would rather be conservative for now-will discuss with attending and look for further guidance Vital signs every 4 hours 1800 ADA/cardiac diet CBC/BMP daily 5 mg [place] p.o. every 4 hours PMR to pain 2 mg morphine IV push every 4 hours Brent rib pain Full code I will discussed this case with attending physician Dr. Lujan and I look forward to more input
[2025-03-19] MEDS: MORPHINE 2MG/ML SYRINGE 2 MG IV (03:48)
--- NOTE | 2025-03-19 04:19 | PC.NURSE ---
bladder scanned, 389 ml in bladder, made PAINTER DECORATOR aware, PAINTER DECORATOR stated not to straight cath until greater than 400 ml in bladder
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
--- NOTE | 2025-03-19 09:04 | HMH.PTEV ---
Physical Therapy Evaluation Rehab PT IP Evaluation Start: 03/19/25 03:47 Freq: ONCE Status: Active Protocol: Document 03/19/25 08:58 EDGAR (Rec: 03/19/25 09:02 EDGAR [id number]) Subjective/History History History Per H&P: This is a 44-year-old female with a past medical history significant for HFpEF, hypothyroidism, diabetes, and hypertension who fell down some stairs and post fall had multiple areas of pain. Due to patient's symptoms, she presented to the emergency room for evaluation. While in the emergency room, patient was trauma scanned and there were no acute fractures or findings found on her imaging; however, CT scan of the head did reveal a incidental finding of a type I Chiari malformation at the craniovertebral junction and a MRI was recommended. These findings were discussed with the patient and she had no knowledge of this. Family is reporting that patient is still having some odd statements during her conversation. Moreover, ER provider was concerned that cervical spine was not clear. As a result, patient is being admitted for further management. Subjective Subjective Pt reports 10/10 neck pain this morning but pleasantly agreeable to attempt evaluation. Pt presents with cervical collar on and with C-spine precaution orders. Pt reports she lives with her boyfriend in a 2-story home with [address] the front and 0 [address] from back door. Pt normally IND with all mobility. [facility] How much help from another person do you currently need... Turning from your A lot back to your side while in a flat bed without using bedrails? Moving from lying on A lot back to sitting on the side of a flat bed without using bedrails? Moving to and from a A lot bed to a chair ( including a wheelchair)? Standing up from a A lot chair using your arms? (e.g., wheelchair, bedside chair) Walking in hospital A lot room? Climbing 3-5 steps A lot with a railing? Mobility Score 12 Mobility Level [facility] Mobility 4 Move to chair/commode Mobility Calculator Rehab PT IP Eval Objective Appearance Patient Behavior Appropriate,Cooperative Patient Orientation Person,Situation Difficulty following none instructions Speech Pattern Soft-Spoken Ambulation Patient Able to No Ambulate Balance Ability to Arise Able, uses arms to help Sitting Balance Steady, safe Standing Balance Unsteady Transfers Bed Transfer Ability Moderate x 1 (50% assist) Sit to Stand Bed Minimal x 1 (25% assist) Transfer Ability Rehab PT IP prob,goals,plan Problems Date of Evaluation: 03/19/25 PT IP Problems Bed Mobility,Transfers,Gait,Balance,Self care,Safety Rehab Potential Rehab Potential Good Plan PT Intervention Plan Bed Mobility,Transfers,Gait,Balance,Self care,Safety, Therapeutic Exercise Other Intervention 1-2 times Plan PT Plan Frequency Daily Duration LOS Discharge Goals Bed Transfer Ability Contact Guard/Hand Hold Sit to Stand Chair Contact Guard/Hand Hold Transfer Ability Ambulation Assistive Rolling Walker Device Ambulation Distance 10 (feet) Discharge Plan PT Discharge Plan Pt presents below her baseline in functional mobility. Pt's primary limitation at this time is neck pain. Pt most appropriate for inpatient rehabilitation facility (IRF) placement at this time to address deficits and maximize safety with mobility. Pt would benefit from skilled PT while at [facility] to prevent further functional decline. Pt may be able to return home with 24/7 assist and HH if her mobility improves (able to perform household level amb with RW) while at [facility]. Eval Complexity Eval Charge Codes 85349 - Moderate Complexity PHYSICIAN CERTIFICATION: I certify the specified therapy services for Radha Ruvalcaba are required, authorized, and reviewed every 30 days.
[2025-03-19 09:13] LABS: Hemoglobin A1C 7.8 % (4.0-6.0)
--- NOTE | 2025-03-19 09:32 | HMH.OTEV ---
OT Evaluation Rehab OT IP Evaluation Start: 03/19/25 08:39 Freq: ONCE Status: Active Protocol: Document 03/19/25 09:23 KARISSA (Rec: 03/19/25 09:31 [email or web address] [id number] Rehab OT IP Assessment Subjective History Pt oriented x 3 on arrival. Pt agreeable to engage in therapy evaluation. Pt admitted on 03/19/25 due to fall with concussion and cervical pain. History and physical: This is a 44-year-old female with a past medical history significant for HFpEF, hypothyroidism, diabetes, and hypertension who fell down some stairs and post fall had multiple areas of pain. Due to patient's symptoms, she presented to the emergency room for evaluation. While in the emergency room, patient was trauma scanned and there were no acute fractures or findings found on her imaging; however, CT scan of the head did reveal a incidental finding of a type I Chiari malformation at the craniovertebral junction and a MRI was recommended. These findings were discussed with the patient and she had no knowledge of this. Family is reporting that patient is still having some odd statements during her conversation. Moreover, ER provider was concerned that cervical spine was not clear. As a result, patient is being admitted for further management. During my evaluation of the patient, she was resting quietly while in the emergency room. Family member states that patient does not seem like she is at her baseline. They report that she has been making odd statements and they think that since patient is not sleeping well then she is probably suffering from fatigue. I asked was patient speaking normally prior to fall, and they state that patient was indeed talking normally prior to fall. Is been reported that patient missed a few stairs and at the base of the stairwell she hit her head and neck. She was still in C-spine and family members are reporting that she is sensitive to light, and she is complaining of pain behind her eyes. She is currently denying any chest pain, lightheadedness, syncope, near syncope, fever, chills, rigors, nausea, vomiting, or diarrhea. She still complains of diffuse head and neck pain. Additional pertinent vitals obtained include a chloride of 97, carbon oxide of 31, blood glucose of 203, AST of 42, and alkaline phosphate of 173. Subjective Prior to being in the hospital, pt lived at home with her boyfriend. Pt claims normally she is independent with all ADLs and IADLs. She still drives and does not require any type of AE during functional transfers. Pt complains of back and neck pain at this time. Therapist assisted patient in stand, step transfers from eob to BSC with min/mod assist x 2. Pt required an extended amount of time to urinate. She reports this is normal and not a new symptom. Mod assist provided for toileting hygiene and upper/lower body dressing. Objective Patient Orientation Person,Place,Birthday Right Upper Min Limitation <25% Extremity Gross ROM Left Upper Extremity Min Limitation <25% Gross ROM Shoulder ROM Pain Limitations Elbow ROM Pain Limitations Wrist Limitations of Pain Range of Motion Bed Mobility bed mobility-scooting,bed mobility - supine/sit Assist Level Moderate x 2 (50% assist) Transfer Training Sit/Stand/Step Transfer Assist Level Moderate x 2 (50% assist) Lower Body Dressing Moderate Assistance Ability Upper Body Dressing Moderate Assistance Ability Performing Toilet Moderate Assistance Hygiene Ability Overall Commode/ Moderate Assistance Toilet Transfer Ability Commode/Toilet Stand Step Pivot Transfer Technique Rehab OT IP prob,goals,plan Problems Date of Evaluation: 03/19/25 OT IP Problems Bed Mobility,Transfers,Balance,Self care,Safety Rehab Potential Rehab Potential Good Equipment Needs Assistive Devices Rolling / Wheeled Walker Plan OT intervention Plan Bed Mobility,Transfers,Balance,Self care,Safety, Therapeutic Exercise OT Plan Frequency Daily Duration LOS Discharge Goals Bed Mobility Ability Assistance x1 Sit to Stand Chair Minimal x 1 (25% assist) Transfer Ability Chair Transfer Minimal x 1 (25% assist) Ability Chair Transfer Sit to/from Ambulatory Technique Chair Transfer Rolling Walker Assistive Devices Lower Body Dressing Moderate Assistance Ability Upper Body Dressing Minimal Assistance Ability Performing Toilet Minimal Assistance Hygiene Ability Overall Commode/ Minimal Assistance Toilet Transfer Ability Commode/Toilet Sit to/from Ambulatory Transfer Technique Commode/Toilet Grab Bars Transfer Assistive Devices Oral Care Assist Standby Assistance Discharge Plan OT Discharge Plan Pt will continue to be seen for OT services while at [facility]. Pt would benefit most from short term rehab following hospital stay due to a decline in functional mobility and ADL independence. Continued skilled therapy services is important in order for patient to improve strength, safety, endurance, ADL independence, and functional transfers to reach [facility]. Eval Complexity Eval Charge Codes 93606 - Moderate Complexity PHYSICIAN CERTIFICATION: I certify the specified therapy services for Crystal Jordon are required, authorized, and reviewed every 30 days.
--- NOTE | 2025-03-19 09:55 | SW/DCPLANNER ---
Addendum entered by Estela Washington 03/20/25 09:22: Patient has chose to return home w/ family rather than placement at [facility]. Patient has requested that information/order be faxed to [facility] in [place]. I will arrange outpatient PT appointment. [facility] phone [phone] fax [phone] Addendum entered by Estela Washington 03/19/25 15:10: Patient is agreeable for information to be faxed to [facility] at this time. I will follow up w/ patient tomorrow morning. Patient stated that if she improves physically she prefers to return home. Original Note: I spoke w/ patient regarding plans once medically stable for discharge. PT/OT evaluated patient and recommended placement if she was not able to show improvement. I did speak w/ patient regarding the need for possible placement. Patient and I discussed [facility]. Patient stated that she would consider this option if placement is needed at time of discharge. CM will continue to follow up. Discharge date is unknown at this time.
[2025-03-19 10:52] LABS: POC Glucose,Bedside 209 gm/dL (70-110)
[2025-03-19] MEDS: humaLOG 100 UNITS/ML 10ML VIAL (SSI) SUBCUT ×3 (10:58→21:14)
[2025-03-19 11:21] LABS: Thyroid Stimulating Hormone 187.00 uIU/mL (0.465-4.68)
[2025-03-19] MEDS: METOPROLOL TARTRATE 50MG TABLET 50 MG PO (13:10)
[2025-03-19] MEDS: ASPIRIN EC 81MG TABLET 81 MG PO (13:10)
[2025-03-19] MEDS: FUROSEMIDE 40 MG TABLET PO (13:10)
[2025-03-19] MEDS: LEVOTHYROXINE 150MCG (0.15MG)TAB 300 MCG PO (13:11)
[2025-03-19] MEDS: GADOTERIDOL INJ 20ML SYRINGE 19 ML IV (13:11)
[2025-03-19] MEDS: EMPAGLIFLOZIN 10MG TABLET 5 MG PO (13:11)
[2025-03-19] MEDS: GABAPENTIN 800MG TABLET 800 MG PO ×3 (13:15→21:14)
[2025-03-19] MEDS: HYDROCODONE/APAP 5/325 MG TABLET 1 TAB PO (13:15)
--- NOTE | 2025-03-19 15:12 | EXP.EVENT.NO ---
Ms. Ruvalcaba is a 44-year-old female admitted to the medical surgical floor after a fall down the stairs. Patient was found to have no acute fractures or findings on imaging however CT scan did reveal incidental finding of a type I Betzy malformation at the craniovertebral junction, recommended MRI. Hospital medicine was consulted for admission due to need for MRI and PT/OT evaluation. Patient was evaluated by PT/OT and was able to ambulate with assist. Patient does complain of increased pain. Incidentally patient's TSH was found to be 187, patient states she has a history of thyroidectomy. Patient currently prescribed levothyroxine 300 mcg daily, continued. Patient also endorses taking methadone 95 mg daily, reordered. Cervical spine MRI significant for no acute findings, multilevel degenerative changes most pronounced at C5-6 and C6-7, small syrinx at upper cervical cord. Brain MRI unremarkable. Discussion with patient was had regarding placement at [facility] for rehabilitation services, patient would like to return home. Plans to continue PT/OT during admission. Anticipate discharge home tomorrow with rehabilitation services.
--- NOTE | 2025-03-19 15:28 | PC.NURSE ---
patient is a/ox4 remains on room air. C-collar removed per hospitalist. tolerating diet. patient has voided per BSC. PT/OT evaluated patient. patient has c/o generalized pain, treated per MAR. FSBS treated per MAR/SSI. currently sitting up in bed, call light within reach, family at bedside. no further requests at this time.
[2025-03-19 16:53] LABS: POC Glucose,Bedside 165 gm/dL (70-110)
[2025-03-19 21:06] LABS: POC Glucose,Bedside 214 gm/dL (70-110)
[2025-03-19] MEDS: ATORVASTATIN 10MG TABLET 10 MG PO (21:14)
[2025-03-19] MEDS: PANTOPRAZOLE 40MG TABLET 40 MG PO (21:14)
[2025-03-20] MEDS: HYDROCODONE/APAP 5/325 MG TABLET 1 TAB PO ×2 (01:35→05:47)
[2025-03-20 04:00] VITALS: BP 117/70; PULSE 62; RESP 14; TEMP 36.5; O2SAT 95; BMI 37.2
[2025-03-20] MEDS: LEVOTHYROXINE 150MCG (0.15MG)TAB 300 MCG PO (05:46)
[2025-03-20 05:49] LABS: POC Glucose,Bedside 126 gm/dL (70-110)
[2025-03-20 06:12] LABS: Hematocrit 38.9 % (37.0-47.0); Hemoglobin 12.6 g/dL (12.2-16.2); Immature Granulocytes % 0.3 %; Mean Corpuscular HGB Conc 32.4 g/dL (31.8-35.4); Mean Corpuscular Hemoglobin 27.9 pg (27.0-31.2); Mean Corpuscular Volume 86.1 fl (81-99); Nucleated Red Blood Cells % 0 %; Platelet Count 191 K/mm3 (142-424); Red Blood Count 4.52 M/mm3 (4.20-5.40); Red Cell Distribution Width-SD 43.7 fL; White Blood Count 6.5 K/mm3 (4.8-10.8)
[2025-03-20 06:27] LABS: Chloride 97 mmol/L (98-107); Sodium 135 mmol/L (136-145)
[2025-03-20 06:28] LABS: Potassium 3.9 mmoL/L (3.5-5.1)
[2025-03-20 06:31] LABS: Anion Gap 8.9 mEq/L (5-15); Calcium 7.7 mg/dl (8.4-10.2); Carbon Dioxide 33 mmol/L (22.0-30.0); Glucose 139 mg/dl (74-100)
[2025-03-20 06:36] LABS: Blood Urea Nitrogen 12 mg/dl (7-17); Creatinine Clearance Estimated 119 mL/min (50-200); Creatinine,Serum 0.90 mg/dl (0.52-1.04); Estimated Glomerular Filt Rate 68 ml/min (>60); GFR (African American) 82 ML/MIN (>60)
[2025-03-20 08:00] VITALS: BP 113/71; PULSE 71; RESP 16; TEMP 36.6; O2SAT 95
[2025-03-20] MEDS: ASPIRIN EC 81MG TABLET 81 MG PO (08:06)
[2025-03-20] MEDS: GABAPENTIN 800MG TABLET 800 MG PO (08:06)
[2025-03-20] MEDS: EMPAGLIFLOZIN 10MG TABLET 5 MG PO (08:06)
[2025-03-20] MEDS: FUROSEMIDE 40 MG TABLET PO (08:06)
[2025-03-20] MEDS: METOPROLOL TARTRATE 50MG TABLET 50 MG PO (08:08)
--- NOTE | 2025-03-20 09:27 | P.DS_ITS ---
<Statement entered by Néstor Lujan MD - 03/21/25 12:55> Agree with plan of care as outlined by the [employer]ICER. General Admission date:: 03/19/25 Discharge date: 03/20/25 HPI HPI HPI: This is a 44-year-old female with a past medical history significant for HFpEF, hypothyroidism, diabetes, and hypertension who fell down some stairs and post fall had multiple areas of pain. Due to patient's symptoms, she presented to the emergency room for evaluation. While in the emergency room, patient was trauma scanned and there were no acute fractures or findings found on her imaging; however, CT scan of the head did reveal a incidental finding of a type I Chiari malformation at the craniovertebral junction and a MRI was recommended. These findings were discussed with the patient and she had no knowledge of this. Family is reporting that patient is still having some odd statements during her conversation. Moreover, ER provider was concerned that cervical spine was not clear. As a result, patient is being admitted for further management. During my evaluation of the patient, she was resting quietly while in the emergency room. Family member states that patient does not seem like she is at her baseline. They report that she has been making odd statements and they think that since patient is not sleeping well then she is probably suffering from fatigue. I asked was patient speaking normally prior to fall, and they state that patient was indeed talking normally prior to fall. Is been reported that patient missed a few stairs and at the base of the stairwell she hit her head and neck. She was still in C-spine and family members are reporting that she is sensitive to light, and she is complaining of pain behind her eyes. She is currently denying any chest pain, lightheadedness, syncope, near syncope, fever, chills, rigors, nausea, vomiting, or diarrhea. She still complains of diffuse head and neck pain. Additional pertinent vitals obtained include a chloride of 97, carbon oxide of 31, blood glucose of 203, AST of 42, and alkaline phosphate of 173. Hospital Course Hospital Course Hospital Course: Ms. Ruvalcaba is a 44-year-old female admitted to the medical surgical floor after a fall down the stairs. Patient was found to have no acute fractures or findings on imaging however CT scan did reveal incidental finding of a type I Betzy malformation at the craniovertebral junction, recommended MRI. Hospital medicine was consulted for admission due to need for MRI and PT/OT evaluation. Patient was evaluated by PT/OT and was able to ambulate with assist. Patient does complain of increased pain. Incidentally patient's TSH was found to be 187, patient states she has a history of thyroidectomy. Patient currently prescribed levothyroxine 300 mcg daily, continued. Patient also endorses taking methadone 95 mg daily, reordered. #Fall #Concussion #Neck pain ? Patient was admitted to the medical surgical floor after a fall down approximately [address] of her cervical spine, abdomen/pelvis which showed no acute findings. No evidence of fractures on x-rays. Patient appeared somewhat altered per family in the emergency department, it was recommended she was admitted to the hospital for MRI. MRI of cervical spine and brain were obtained and showed no acute findings. ? PT/OT were consulted and evaluated patient recommending outpatient rehab and 24/ care at home. Patient has stable situation to go live with her sister while she recovers from her fall. ? Patient currently takes methadone 95 mg daily, patient discharged home with Toradol 10 mg every 6 hours as needed for pain. Instructed patient not to take any NSAIDs while taking the Toradol. ? Patient will receive outpatient rehab services for strength building. #Chiari malformation type I ? Incidental finding of a chiari malformation type I at the craniovertebral junction, head CT recommended MRI follow-up. MRI noted cerebral tonsillar herniation measuring up to 10 mm compatible with chiari malformation, no hemorrhage or edema seen. No acute findings noted. Patient should follow with PCP for monitoring and further evaluation once stable. #Hypothyroidism ? TSH was significantly elevated at 187. Patient states she does have a history of a thyroidectomy. Discussed with patient the importance of taking her medication, she states she has not taken her medication in approximately 2 weeks. Discussed medication compliance, taking medication on empty stomach, without other medication. Patient should have repeat TSH in approximately 4 to 6 weeks for evaluation. Patient should continue her levothyroxine 300 mcg daily. #Type 2 diabetes ? Patient should continue her home medication of glipizide 10 mg daily, Mounjaro 2.5 mg weekly for her diabetes. #Hypertension ? Patient should continue her cardiac medications, atorvastatin 20 mg daily, a spirin 81 mg daily, Lasix 40 mg daily, Jardiance 5 mg daily, metoprolol 50 mg daily #GERD ? Patient should continue lansoprazole 30 mg daily. Continue Wellbutrin 150 mg daily, gabapentin 800 mg 4 times daily, methadone 95 mg daily Total time spent on discharge 32 minutes in counseling, documentation, chart review, and direct care with patient. Exam Data for Last 24 hours Vital signs and Labs for Last 24 Hours: Temp Pulse Resp BP Pulse Ox O2 Del Method 97.9 F 71 16 113/71 95 Room Air 03/20/25 08:00 03/20/25 08:00 03/20/25 08:00 03/20/25 08:00 03/20/25 08:00 03/20/25 09:00 Laboratory Results - last 24 hr 03/19/25 08:45: TSH 187.00 H 03/19/25 10:43: POC Glucose 209 H 03/19/25 16:39: POC Glucose 165 H 03/19/25 20:59: POC Glucose 214 H 03/20/25 05:15: WBC 6.5, RBC 4.52, Hgb 12.6, Hct 38.9, MCV 86.1, MCH 27.9, MCHC 32.4, RDW 13.9, Plt Count 191, MPV 10.2, Neut % (Auto) 51.5, Lymph % (Auto) 39.8, [place] % (Auto) 6.5, Eos % (Auto) 1.4, Baso % (Auto) 0.5, Neut # (Auto) 3.3, Lymph # (Auto) 2.6, [place] # (Auto) 0.4, Eos # (Auto) 0.1, Baso # (Auto) 0.0, Sodium 135 L, Potassium 3.9, Chloride 97 L, Carbon Dioxide 33 H, Anion Gap 8.9, BUN 12, Creatinine 0.90, Estimated Creat Clear 119, Estimated GFR 68, Est GFR ( Amer) 82, Glucose 139 H, Calcium 7.7 L 03/20/25 05:42: POC Glucose 126 H I & O for Last 24 hours: Intake & Output 03/17/25 03/18/25 03/19/25 03/20/25 23:59 23:59 23:59 23:59 Intake Total 600 / 720 120 / 120 Output Total 775 / 775 350 / 350 Balance -175 / -55 -230 / -230 Weight 95.254 kg 95.799 kg 95.254 kg Constitutional Constitutional: no acute distress, obese and cooperative *Routine HEENT Exam Head: Present normocephalic Eye: Present EOMI and PERRL ENT: Present mucous membranes moist *Routine Neck Exam Neck: Present supple; Absent lymphadenopathy *Routine Respiratory Exam Respiratory: Present CTA bilaterally and normal respiratory effort; Absent wheezes or crackles *Routine Cardiovascular Exam Cardiovascular: Present RRR; Absent murmur *Routine Abdominal Exam Abdominal: Present soft and normoactive bowel sounds; Absent tenderness *Routine Rectal Exam Patient deferred: visual exam *Routine Exam Patient deferred: external exam *Routine Extremities Exam Extremities: Absent cyanosis, clubbing or edema Routine Back/Spine/Pelvis Exam Back/Spine: Present vertebral tenderness *Routine Skin Exam Skin: Present intact, dry and warm; Absent rash *Routine Neurological Exam Neurological: Present alert, oriented X3, moving all extremities, vision grossly intact, hearing grossly intact and normal speech Results Data Completed and Pending Labs on day of discharge: Labs from last 24 hours 03/20/25 03/20/25 03/19/25 05:42 05:15 20:59 WBC 6.5 RBC 4.52 Hgb 12.6 Hct 38.9 MCV 86.1 MCH 27.9 MCHC 32.4 RDW 13.9 Plt Count 191 MPV 10.2 Neut % (Auto) 51.5 Lymph % (Auto) 39.8 [place] % (Auto) 6.5 Eos % (Auto) 1.4 Baso % (Auto) 0.5 Neut # (Auto) 3.3 Lymph # (Auto) 2.6 [place] # (Auto) 0.4 Eos # (Auto) 0.1 Baso # (Auto) 0.0 Sodium 135 L Potassium 3.9 Chloride 97 L Carbon Dioxide 33 H Anion Gap 8.9 BUN 12 Creatinine 0.90 Estimated Creat Clear 119 Estimated GFR 68 Est GFR ( Amer) 82 Glucose 139 H POC Glucose 126 H 214 H Calcium 7.7 L TSH 03/19/25 03/19/25 03/19/25 16:39 10:43 08:45 WBC RBC Hgb Hct MCV MCH MCHC RDW Plt Count MPV Neut % (Auto) Lymph % (Auto) [place] % (Auto) Eos % (Auto) Baso % (Auto) Neut # (Auto) Lymph # (Auto) [place] # (Auto) Eos # (Auto) Baso # (Auto) Sodium Potassium Chloride Carbon Dioxide Anion Gap BUN Creatinine Estimated Creat Clear Estimated GFR Est GFR ( Amer) Glucose POC Glucose 165 H 209 H Calcium TSH 187.00 H DS: Diagnosis Discharge Diagnosis (1) Concussion: Status: Acute Code(s): S06.0XAA - Concussion with loss of consciousness status unknown, initial encounter Qualifiers: Encounter type: initial encounter Loss of consciousness presence/duration: with LOC of 30 min or less Qualified Code(s): S06.0X1A - Concussion with loss of consciousness of 30 minutes or less, initial encounter (2) Fall: Status: Acute Code(s): W19.XXXA - Unspecified fall, initial encounter Qualifiers: Encounter type: initial encounter Qualified Code(s): W19.XXXA - Unspecified fall, initial encounter (3) AMS (altered mental status): Status: Acute Code(s): R41.82 - Altered mental status, unspecified Qualifiers: Altered mental status type: unspecified Qualified Code(s): R41.82 - Altered mental status, unspecified (4) Hyperglycemia: Status: Acute Code(s): R73.9 - Hyperglycemia, unspecified (5) Headache: Status: Acute Code(s): R51.9 - Headache, unspecified Qualifiers: Headache chronicity pattern: acute headache Headache type: unspecified Intractability: intractable Qualified Code(s): R51.9 - Headache, unspecified (6) Elevated liver enzymes: Status: Acute Code(s): R74.8 - Abnormal levels of other serum enzymes (7) Hypothyroid: Status: Acute Code(s): E03.9 - Hypothyroidism, unspecified (8) Type 2 diabetes mellitus: Status: Acute Code(s): E11.9 - Type 2 diabetes mellitus without complications (9) History of drug use disorder: Status: Acute Code(s): F19.91 - Other psychoactive substance use, unspecified, in remission Meds Home Medications and Allergies Home Medications ?Medication ?Instructions ?Recorded ?Confirmed ?Type ibuprofen 600 mg tablet 600 mg PO Q6HP PRN Mild Pain #30 07/03/23 03/19/25 Rx Held on 03/20/25. tabs Instructions: While taking Toradol. aspirin 81 mg tablet,delayed 81 mg PO DAILY 08/27/24 1 History release atorvastatin 20 mg tablet 10 mg PO DAILY 08/27/2402/27 History blood-glucose sensor (Dexcom G7 #1 ea 08/27/24 5 History Sensor device) furosemide 40 mg tablet 40 mg PO DAILY 08/27/2402/27 History gabapentin 800 mg tablet 800 mg PO QID 08/27/2403/19 History glipizide 10 mg tablet, extended 10 mg PO DAILY 03/19/25 History release 24 hr lansoprazole 30 mg capsule,delayed 30 mg PO DAILY 06/2203/19/25 History release levothyroxine 300 mcg tablet 300 mcg PO DAILY 08/27/24 03/19/25 History metoprolol tartrate 50 mg tablet 50 mg PO DAILY 03/19/25 History potassium chloride 10 mEq 10 meq PO DAILY 08/27/24 History tablet,extended release(part/cryst) tirzepatide 2.5 mg/0.5 mL 2.5 mg SQ WEEKLY 08/27/24 History subcutaneous pen injector (Mounjaro) bupropion HCl 150 mg 24 hr tablet, 150 mg PO DAILY 03/19/25 History extended release empagliflozin 10 mg tablet 5 mg PO DAILY 03/19/2502/27 History (Jardiance) methadone 40 mg soluble tablet 95 mg PO DAILY 03/19/25 03/19/25 History ketorolac 10 mg tablet 10 mg PO Q6H PRN pain #13 ta bs 03/20/25 Rx New Prescriptions to Start Prescriptions: Lesli Rodriguez Allergies Allergy/AdvReac Type Severity Reaction Status Date / Time No Known Allergies Allergy Verified 09/13/24 12:06 Discharge Plan Disposition Patient Disposition: Home, Self-Care Condition: Fair Follow up Plan Follow up with: Reed Bustos APRN [Referring, Medical] - 03/26/25 11:00 am Prescriptions/Medication Reconciliation: New ketorolac 10 mg tablet 10 mg PO Q6H PRN (Reason: pain) Qty: 13 0RF Rx Instructions: maximum total duration of 5 days from all oral, intranasal, or parenteral formulations Continued furosemide 40 mg tablet 40 mg PO DAILY Patient Comments: TAKE 1 TABLET BY MOUTH EVERY DAY levothyroxine 300 mcg tablet 300 mcg PO DAILY Patient Comments: TAKE 1 TABLET BY MOUTH DAILY IN THE MORNING ON AN EMPTY STOMACH glipizide 10 mg tablet extended release 24hr 10 mg PO DAILY Patient Comments: TAKE 1 TABLET BY MOUTH EVERY DAY aspirin 81 mg tablet,delayed release (DR/EC) 81 mg PO DAILY Patient Comments: TAKE 1 TABLET BY MOUTH EVERY DAY gabapentin 800 mg tablet 800 mg PO QID Patient Comments: TAKE 1 TABLET BY MOUTH FOUR TIMES DAILY lansoprazole 30 mg capsule,delayed release(DR/EC) 30 mg PO DAILY Patient Comments: TAKE 1 CAPSULE BY MOUTH EVERY DAY metoprolol tartrate 50 mg tablet 50 mg PO DAILY Patient Comments: TAKE 1 TABLET BY MOUTH TWICE DAILY potassium chloride 10 mEq tablet,ER particles/crystals 10 meq PO DAILY Patient Comments: TAKE 1 TABLET BY MOUTH TWICE DAILY WITH FOOD (DME) Dexcom G7 Sensor Device See Rx Instructions .ROUTE .MEDSUPPLY Qty: 1 Patient Comments: USE DIRECTED TO CHECK BLOOD SUGAR Rx Instructions: As directed Mounjaro 2.5 mg/0.5 mL pen injector 2.5 mg SQ WEEKLY Patient Comments: ADMINISTER 2.5 MG UNDER THE SKIN EVERY WEEK atorvastatin 20 mg tablet 10 mg PO DAILY Patient Comments: TAKE 1 TABLET BY MOUTH DAILY bupropion HCl 150 mg tablet extended release 24 hr 150 mg PO DAILY Patient Comments: TAKE 1 TABLET BY MOUTH EVERY DAY Jardiance 10 mg Tablet 5 mg PO DAILY methadone 40 mg Tablet,Soluble 95 mg PO DAILY Held ibuprofen 600 mg tablet 600 mg PO Q6HP PRN (Reason: Mild Pain) Qty: 30 0RF Hold Instructions: While taking Toradol. Problem Reconciliation Problems Reviewed?: Yes Patient Discharge Instructions ACTIVITY: Continue current activity Patient Instructions: DI for Concussion, How to Prevent Falls Print Language: Barbadian Providers Primary Care Provider: Provider,Referral Admit Provider: Néstor Lujan Attending Provider: Néstor Lujan
--- NOTE | 2025-03-20 10:33 | DIET.NUTRFU ---
RD educated patient on diabetic diet, plans to discharge home with family today. Provided multiple handouts and reviewed her meal plan. She drinks multiple soda/day- encouraged her to change to a sugar free beverages, she dislikes water. Suggested ice tea with stevia. Family seemed supportive. Also suggested a outpatient consult and reviewed process with PCP
[2025-03-20] MEDS: KETOROLAC 15MG/ML VIAL 15 MG IV (11:04)
[2025-03-20] MEDS: humaLOG 100 UNITS/ML 10ML VIAL (SSI) SUBCUT (11:12)
[2025-03-20 11:31] VITALS: BP 117/83; PULSE 72; RESP 18; TEMP 36.6; O2SAT 95
[2025-03-20 16:14] LABS: POC Glucose,Bedside 179 gm/dL (70-110)
[2025-03-20 16:19] LABS: POC Glucose,Bedside 128 gm/dL (70-110)
--- NOTE | 2025-03-21 10:40 | SW/DCPLANNER ---
Spoke with patient on the phone. patient stated that she is doing okay. Patient stated that she is aware of her upcoming appointment. 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 Patient stated that she has no concerns or questions at this time. [employer]
== END 2025-03-20 12:25 | disposition home or self-care (01) ==
LOC: ER 03-19 02:54 → 2ND 03-19 02:55
PROVIDERS: Nurse Practitioner Family; Admitting Provider Student in an Organized Health Care Education/Training Program; Emergency Provider Emergency Medicine; Visit Provider Student in an Organized Health Care Education/Training Program
DX: S06.0X1A Concussion with loss of consciousness of 30 minutes or less, initial encounter (principal); R41.82 Altered mental status, unspecified; E11.65 Type 2 diabetes mellitus with hyperglycemia; R74.8 Abnormal levels of other serum enzymes; F19.91 Other psychoactive substance use, unspecified, in remission; M47.812 Spondylosis without myelopathy or radiculopathy, cervical region; I11.0 Hypertensive heart disease with heart failure; I50.30 Unspecified diastolic (congestive) heart failure; E66.9 Obesity, unspecified; G93.5 Compression of brain; E89.0 Postprocedural hypothyroidism; R91.8 Other nonspecific abnormal finding of lung field; K76.0 Fatty (change of) liver, not elsewhere classified; K21.9 Gastro-esophageal reflux disease without esophagitis; K57.30 Diverticulosis of large intestine without perforation or abscess without bleeding; W19.XXXA Unspecified fall, initial encounter; Z90.49 Acquired absence of other specified parts of digestive tract; Z90.710 Acquired absence of both cervix and uterus; Z68.37 Body mass index [BMI] 37.0-37.9, adult; Z79.890 Hormone replacement therapy; Z79.84 Long term (current) use of oral hypoglycemic drugs; Z79.85 Long-term (current) use of injectable non-insulin antidiabetic drugs; Z79.899 Other long term (current) drug therapy
CPT/HCPCS: 36415; 51798; 70450; 70496; 70498; 70553; 71275; 72125; 72128; 72131; 72156; 73030; 73610; 73630; 74174; 80048; 80053; 82962; 83036; 84443; 85025; 86803; 87389; 87522; 96374; 96375; 96376; 97110; 97162; 97166; 97530; 99285; A9576; G0378; J1885; J2270; Q9967